=== PATIENT | male | born 1955 | race Caucasian/White ===

== ENCOUNTER 2020-07-12 06:45 | Inpatient (IN) | payer BC, MEDICARE, SELFPAY ==
[2020-07-12] VITALS (24 sets, daily range): BP systolic 82–116; BP diastolic 55–101; PULSE 87–131; RESP 14–25; TEMP 36–36.8; O2SAT 91–97; BMI 30.2
--- NOTE | ~2020-07-12 | XR_ITS ---
XR chest 1V portable 07/12/2020 07:30 Indication: Shortness of breath. COPD. Procedure: AP portable chest Comparison: No prior studies for comparison. Findings: Heart size normal. Extensive airspace disease of the right mid and lower lung, consistent w ith pneumonia. No pleural effusion or pneumothorax. Left lung clear. No acute osseous abnormality. Impression: 1: Extensive airspace disease of the right mid and lower lung, compatible with pneumonia. Reviewed, dictated and finalized at location A. Impression: 1: Extensive airspace disease of the right mid and lower lung, compatible with pneumonia.
--- NOTE | ~2020-07-12 | XR_ITS ---
XR chest 1V portable 07/13/2020 06:28 Indication: Pneumonia Procedure: AP portable chest Comparison: 07/12/2020 Findings: Heart size normal. There is bilateral airspace disease, right greater than left. Consolidat ion most confluent in the right upper lobe. No pleural effusion or pneumothorax. No significant inter jorge luis change. No acute osseous abnormality. Impression: 1: Stable asymmetric bilateral airspace disease, compatible with pneumonia. Reviewed, dictated and finalized at location A. Impression: 1: Stable asymmetric bilateral airspace disease, compatible with pneumonia.
--- NOTE | ~2020-07-12 | CT_ITS ---
EXAMINATION: CTA chest PE protocol DATE: 07/15/2020 13:38 INDICATION: Right-sided pleuritic chest pain. Hemoptysis. TECHNIQUE: Computed tomography angiography (CTA) of the chest was performed with 100 mL Omnipaque-350 intravenous contrast timed to evaluate the pulmonary arteries. Coronal maximum intensity projection 3D-reconstructions were created by the technologist. Automated exposure control and iterative reconst ruction technique were employed. The dose-length product was 464.17 mGy-cm. COMPARISON: Chest single view 07/13/2020 FINDINGS: There is severe emphysema. There is mild atelectasis in left upper lobe and left lower lobe . There are patchy airspace and groundglass opacities in right upper lobe, right lower lobe, and righ t middle lobe, consistent with pneumonia. Calcified right lung nodules and calcified right hilar lymp h nodes are consistent with old granulomatous disease. There is a small right pleural effusion. The h eart size is normal. There is a small pericardial effusion. There are coronary artery calcifications. There is no pulmonary embolus. IMPRESSION: 1. No pulmonary embolus. 2. Right-sided pneumonia. 3. Severe emphysema. 4. Small right pleural effusion. 5. Small pericardial effusion. Reviewed, dictated and finalized at location A.
--- NOTE | 2020-07-12 06:57 | ECG_ITS ---
Measurements Intervals [place] Rate: 131 P: 70 TN: 138 QRS: 63 QRSD: 102 T: 63 QT: 287 QTc: 425 Interpretive Statements SINUS TACHYCARDIA INCOMPLETE RIGHT BUNDLE BRANCH BLOCK BASELINE ARTIFACT- I, II, AVR, AVL ABNORMAL ECG Electronically Signed On 07-12-2020 7:45:27 CDT by Jens Boyce D.O.
[2020-07-12] MEDS: SODIUM CHLORIDE 0.9% IV 1,000 ML 1000 ML (07:17)
[2020-07-12 07:28] LABS: Basophils Absolute Auto 0.1 K/mm3 (0.0-0.1); Hematocrit 41.5 % (42.0-52.0); Hemoglobin 14.6 g/dL (14.0-18.0); Immature Granulocyte Absolute 0.09 K/mm3 (0.00-0.031); Immature Granulocyte Percent A 1.5 % (0-0.5); Lymphocytes Absolute Auto 0.31 K/mm3 (0.9-3.2); Lymphocytes Percent Auto 5.1 % (18.3-44.2); Mean Corpuscular HGB Conc 35.2 g/dl (32-36); Mean Corpuscular Hemoglobin 31.1 pg (26-34); Mean Corpuscular Volume 88.3 fl (80-100); Monocytes Absolute Auto 0.2 K/mm3 (0.1-0.6); Monocytes Percent Auto 3.8 % (2.6-8.5); Neutrophils Absolute Auto 5.4 K/mm3 (1.3-6.7); Neutrophils Percent Auto 88.6 % (45.5-73.1); Platelet Count Result 212 k/mm3 (150-375); Red Cell Distribution Width 12.5 % (11.5-14.5); White Blood Count 6.1 K/mm3 (4.5-10.0)
[2020-07-12 07:39] LABS: INR 1.4; Prothrombin Time 16.3 Seconds (11.1-14.7)
[2020-07-12 07:47] LABS: Partial Thromboplastin Time 33.2 SECONDS (22.3-36.8)
[2020-07-12 07:48] LABS: Lactic Acid Reflex 2.8 mmol/L (0.7-2.1)
--- NOTE | 2020-07-12 07:48 | ED.SOB ---
HPI - SOB/Dyspnea General Chief Complaint: Shortness of Breath/Dyspnea Stated Complaint: fever, sob Time Seen by Provider: 07/12/20 07:13 Source: patient and family Mode of arrival: ambulatory Limitations: no limitations History of Present Illness HPI Narrative: 65 years old white male presents with progressive shortness of breath and fever over the last 7 days. Patient denies exposure to anybody with known COVID-19. Patient denies any vomiting, diarrhea, abdominal pain, chest pain, back pain, headache, sore throat. History of COPD, Not on home oxygen. Related Data Home Medications Medication Instructions Recorded Confirmed amlodipine 5 mg PO DAILY 07/12/20 aspirin [Adult Low Dose Aspirin] 81 mg PO DAILY 07/12/20 levothyroxine 50 mcg PO DAILY 07/12/20 pantoprazole 40 mg PO QAM 07/12/20 rosuvastatin 10 mg PO DAILY 07/12/20 Allergies Allergy/AdvReac Type Severity Reaction Status Date / Time tetracycline Allergy Rash Verified 07/12/20 08:01 Review of Systems Review of Systems: Narrative: CONSTITUTIONAL: Denies fever, chills, or sweats. EYES: Denies visual changes, redness, or discharge. ENT: Denies rhinorrhea, congestion, sore throat, or otalgia. CARDIOVASCULAR: Denies chest pain, palpitations, or edema. RESPIRATORY: Denies cough or dyspnea. GASTROINTESTINAL: Denies abdominal pain, nausea, vomiting, or diarrhea. GENITOURINARY: Denies dysuria or hematuria. SKIN: Denies rash or itching. MUSCULOSKELETAL: Denies back pain, joint pain, or myalgia. NEUROLOGIC: Denies headache, numbness, or weakness. PSYCHIATRIC: Denies anxiety or depression. PMFSH Past Medical History Medical History (Updated 07/12/20 @ 09:59 by Sandra Foster MD) COPD (chronic obstructive pulmonary disease) Social History Social History (Updated 07/12/20 @ 07:51 by Sandra Foster MD) Second hand tobacco smoke exposure: No Exam Narrative: Exam Narrative: General appearance: Well-developed, well-nourished Skin: Normal color Head: Normocephalic, nontraumatic Eyes: Clear conjunctiva ENT: Oropharynx normal, ears normal, nose normal Neck: Supple, nontender Chest and respiratory: Airway patent, labored breathing, accessory muscle lateral use, diminished of air entry bilaterally mainly on the right side, scattered rhonchi and wheezing Heart: Tachycardia Abdomen: Soft, nontender, no organomegaly, quiet bowel sounds Vascular: Normal peripheral pulses, normal capillary refill. Musculoskeletal: Normal range of motion, nontender back Neurologic: Alert and oriented ?3, BATCHMAKER is normal as tested, no gross motor deficit Const: General: cooperative Course Course Emergency Course: Improving Reevaluation(s) Reevaluation #1: DR MARIN Requested to not send patient to the ICU until reevaluation after the IV bolus. Date: 07/12/20 Time: 09:57 Reevaluation #2: YASMINE Date: 07/12/20 Time: 10:00 Vital Signs Vital signs: Vital Signs Temperature 36.8 C 07/12/20 06:51 Pulse Rate 131 H 07/12/20 06:51 Respiratory Rate 22 H 07/12/20 06:51 Blood Pressure 97/70 L 07/12/20 06:51 Pulse Oximetry 91 07/12/20 06:51 Temperature 36.8 C 07/12/20 08:50 Pulse Rate 104 H 07/12/20 09:48 Respiratory Rate 18 07/12/20 09:48 Blood Pressure 96/68 L 07/12/20 09:48 Pulse Oximetry 97 07/12/20 09:48 Procedures Central Line Placement Right Femoral: Central Line Date: 07/12/20 Central Line Time: 09:46 Discussed w/ the patient/family/POA,the placement of a central venous catheter, including its clinical necessity/indication & associated potential risks, benifits and alternatives.: Yes Time Out Performed: Yes (25) Patient Placed on Mon
--- NOTE | 2020-07-12 08:00 | PC.NURSE ---
Pt unable to provide urine sample at this time
[2020-07-12] MEDS: IPRATROPIUM BR 0.02% INH SOLN 0.5 MG/2.5 ML VIAL INHALATION ×2 (08:19→21:07)
[2020-07-12] MEDS: ALBUTEROL SULFATE NEB 2.5 MG/0.5 ML INH 5 MG INHALATION (08:19)
[2020-07-12 08:22] LABS: Alanine Aminotransferase 28 U/L (4-50); Albumin Level 3.8 g/dL (3.5-5.1); Alkaline Phosphatase 54 U/L (38-126); Anion Gap 14 mmol/L (8-16); Aspartate Amino Transferase 33 U/L (17-59); Blood Urea Nitrogen 34 mg/dL (9-20); CRP > 45.0 mg/dL (<1.0); Calcium 8.5 mg/dL (8.4-10.2); Carbon Dioxide 22 mmol/L (22-30); Chloride 99 mmol/L (98-107); Estimated CRCL calculation 43 ml/min; Estimated Glomerular Filt Rate 43; Glucose 139 mg/dL (75-110); Potassium 3.8 mmol/L (3.4-5.0); Sodium 135 mmol/L (137-145)
[2020-07-12] MEDS: ACETAMINOPHEN 500 MG TABLET 1000 MG PO (08:50)
--- NOTE | 2020-07-12 08:54 | PC.NURSE ---
Pt unable to provide urine sample at this time
[2020-07-12] MEDS: SODIUM CHLORIDE 0.9% IV 1,000 ML 125 ML IV CONT ×2 (09:19→21:27)
--- NOTE | 2020-07-12 09:24 | PC.NURSE ---
Dr. Foster at bedside putting in central line
--- NOTE | 2020-07-12 10:19 | ADMGEN ---
This patient, London Nava, was admitted to Intensive Care Unit-7. Patient/family oriented to hospital policies and general routines including ID bracelet, bed and alarms, visiting hours, pain management, procedures, bathroom and other care routines, personal items, smoking policy, room service/diet, and visiting hours. Valuables list has been completed. Information on how to activate the Rapid Response Team has been discussed. Patient/Family are encouraged to report perceived risks to care and to ask questions if they do not understand what they are told or what they should do.
[2020-07-12 10:25] LABS: Reflex Lactic Acid Yes or No Add Lactic
[2020-07-12 11:04] LABS: Lactic Acid 3.4 mmol/L (0.7-2.1)
--- NOTE | 2020-07-12 12:03 | WPDCNINT ---
Assessment and Plan Assessment and plan (1) Sepsis: Code(s): A41.9 - Sepsis, unspecified organism Status: Acute Assessment and Plan: Sepsis secondary to community-acquired pneumonia versus COVID-19 patient received IV fluid bolus in the ED. Repeat lactate was elevated will recheck lactate at 2:00 p.m. continue IV fluids has not required vasopressors at this time but may needed blood Cultures sent and pending. (2) Pneumonia: Qualifiers: Laterality: right Lung location: unspecified part of lung Pneumonia type: due to unspecified organism Qualified Code(s): J18.9 - Pneumonia, unspecified organism Code(s): J18.9 - Pneumonia, unspecified organism Status: Acute Assessment and Plan: CXR showed Extensive airspace disease of the right mid and lower lung, compatible with pneumonia. blood culture sent and pending check sputum culture urine Legionella check influenza, COVID-19 empiric Rocephin azithromycin empiric dexamethasone for COPD and possible COVID-19 (3) Acute exacerbation of chronic obstructive airways disease: Code(s): J44.1 - Chronic obstructive pulmonary disease with (acute) exacerbation Status: Acute Assessment and Plan: empiric steroids bronchodilators (4) Suspected COVID-19 virus infection: Code(s): Z20.828 - Contact with and (suspected) exposure to other viral communicable diseases Status: Acute Assessment and Plan: COVID-19 suspected. SARS-CoV-2 PCR sent and results pending Patient is in Airborne, Droplet and Contact Isolation Check inflammatory markers (5) VALARIE (acute kidney injury): Code(s): N17.9 - Acute kidney failure, unspecified Status: Acute Assessment and Plan: creatinine elevated to 1.6 likely prerenal from sepsis and hypovolemia continue IV fluids monitor electrolytes and urine outpuyt (6) Hyperlipidemia: Code(s): E78.5 - Hyperlipidemia, unspecified Status: Acute Assessment and Plan: continue Crestor (7) Hypothyroidism: Code(s): E03.9 - Hypothyroidism, unspecified Status: Acute Assessment and Plan: continue levothyroxine (8) Hypertension: Code(s): I10 - Essential (primary) hypertension Status: Acute Assessment and Plan: blood pressure medications on hold due to hypotension Additional Plan DVT prophylaxis - heparin subcu Stress ulcer prophylaxis - patient on PPI Code Status - Full Code Total Critical Care Time - 35 minutes Due to a high probability of clinically significant, life threatening deterioration, the patient required my highest level of preparedness to intervene emergently and I personally spent this critical care time directly and personally managing the patient. This critical care time included obtaining a history; examining the patient; pulse oximetry; ordering and review of studies; arranging urgent treatment with development of a management plan; evaluation of patient's response to treatment; frequent reassessment; and discussions with other providers. It was exclusive of separately billable procedures and treating other patients and teaching time. Please see Assessment and Plan section and the rest of the note for further information on patient assessment and treatment Shoulder Joiner Consult Note Consult date: 07/12/20 Time Seen: 11:30 HPI: London Nava is a 65 year old male who presented with chief complaint of fever shortness of breath and cough for last 2 days. patient stated that his symptoms initially started 1 week ago when he had chills and body aches. Symptoms recovered and then since he started again having shortness of breath, productive cough, fever, chills, body aches. He told me that he was in contact with his daughter who had respiratory illness and was diagnosed with flu and negative for COVID. He denies any contact with anyone diagnosed with COVID-19 or travel. h
--- NOTE | 2020-07-12 13:48 | PM.IMHP ---
H&P: HPI History of Present Illness Date/Time: 07/12/20 13:48 Chief complaint: Pneumonia, sepsis, COPD Narrative: London Nava is a 65 year old male Has a history of COPD. And thinks that he had pneumonia 2-3 months ago. He was 9 sure if he was here in this hospital but I cannot find any records from it. The patient stated that he has had fever and chills and a cough for 7 days. he thought that he had the flu and was taking cold and flu medicine he felt like he was getting better in the in it got worse Over the last couple days and decided to come to the hospital. he had not been checked for influenza He stated that his daughter was sick about a week ago with the same symptoms. She recently was checked for COVID was found to be negative. The patient does not wear any oxygen at home. He stated he tried to not come to the hospital was short of breath and decided that he needed to come. His white count is normal. CRP is elevated greater than 45. Lactic acid 2.8 And 3.4. chest x-ray was read as extensive airspace disease of right mid and lower lung compatible with pneumonia. His creatinine was found to be 1.6. The patient was started on dexamethasone. He was given IV fluids, Zosyn, neb treatments, steroids, Levaquin, and vancomycin. the supervisor nurse was notified and the patient was admitted to the intensive care unit. A central line was placed in the right femoral area in the emergency room. Patient was checked for covid 19 And is in isolation now. chest x-ray was read as extensive airspace disease in the right mid and lower lung compatible with pneumonia. Date of service 07/22. Review of Systems Review of Systems: All systems reviewed & are unremarkable except as noted in HPI and below Constitutional: Constitutional: Reports as per HPI and Reports no additional constitutional complaints Eyes: Eyes: Reports as per HPI and Reports no additional eye complaints ENT: Reports system reviewed and no additional complaints, except as documented and Reports Normal hearing present Cardiovascular: Cardiovascular: Reports no additional cardiovascular complaints Respiratory: Respiratory: Reports no additional respiratory complaints and Reports no additional respiratory complaints Gastrointestinal: Gastrointestinal: Reports as per HPI and Reports no additional gastrointestinal complaints Musculoskeletal: Musculoskeletal: Reports no additional musculoskeletal complaints Integumentary/Breasts: Skin/Breast: Reports system reviewed and no additional complaints, except as docu and Reports as per HPI Neurologic: Reports system reviewed and no additional complaints, except as documented, Reports as per HPI and Reports Normal hearing present Psychiatric: Psychiatric: Reports no additional psychiatric complaints and Reports as per HPI Endocrine: Endocrine: Reports no additional endocrine complaints Hematologic/Lymphatic: Hematologic/Lymphatic: Reports no additional hematologic/lymphatic complaints Allergic/Immunologic: Allergic/Immunologic: Reports no additional allergic/immunologic complaints [facility] Past Medical History Medical History (Updated 07/12/20 @ 14:02 by Patt Vance NP) COPD (chronic obstructive pulmonary disease) History of throat cancer Hyperlipidemia Port-A-Cath in place Surgical History Surgical History (Updated 07/12/20 @ 14:02 by Patt Vance NP) History of arthroscopy of both knees S/p bilateral shoulder joint replacement Family History Family History (Updated 07/12/20 @ 14:03 by Patt Vance NP) Father Cancer COPD (chronic obstructive pulmonary disease) Mother Cancer Sibling Mental disorder Social History Social History (Updated 07/12/20 @ 14:06 by Patt Vance NP) Social History: the patient stated that he quit smoking in 2009 just 1 year prior to being diagnosed with throat cancer. The patient occasionally has an alcoholic beverage. The patient is retired from the [employer]
[2020-07-12 14:20] LABS: Lactic Acid Reflex 3.7 mmol/L (0.7-2.1)
[2020-07-12 14:29] LABS: NT Pro B Type Natriuretic Pept 3040 PG/ML (5-100)
[2020-07-12 14:34] LABS: D Dimer 2.07 ug/mL (<0.48)
[2020-07-12] MEDS: ALBUTEROL SULFATE NEB 2.5 MG/0.5 ML INH INHALATION ×2 (15:26→21:06)
[2020-07-12 15:29] LABS: Influenza Control Positive
[2020-07-12 18:32] LABS: Add Urine Microscopic? YES; Appearance Urine Cloudy (Clear); Bilirubin Urine Negative (Negative); Blood Urine Negative (Negative); Color Urine Amber (Yellow); Glucose Urine UA Negative (Negative); Ketones Urine Negative (Negative); Leukocyte Esterase Ur Negative LEU/UL (Negative); Mucus Urine Rare /lpf; Nitrate Urine Negative (Negative); Protein Urine 2+ mg/dL (Negative); RBC Urine 0-2 /hpf (0-2); Specific Grav Ur 1.028 (1.001-1.035); Squamous Epithelial Cell Urine Rare /hpf (Few); Urobilinogen Urine Negative mg/dL (<2.0)
[2020-07-12 19:00] LABS: SARS-CoV-2 RNA PCR Positive
[2020-07-12] MEDS: HEPARIN SODIUM 5,000 UNITS/ML VIAL 5000 UNITS SUB-Q (20:28)
[2020-07-13] VITALS (19 sets, daily range): BP systolic 102–126; BP diastolic 67–96; PULSE 86–96; RESP 16–24; TEMP 36.2–36.6; O2SAT 90–97
[2020-07-13] MEDS: ALBUTEROL SULFATE NEB 2.5 MG/0.5 ML INH INHALATION ×2 (02:27→08:34)
[2020-07-13] MEDS: IPRATROPIUM BR 0.02% INH SOLN 0.5 MG/2.5 ML VIAL INHALATION ×2 (02:28→08:37)
[2020-07-13] MEDS: SODIUM CHLORIDE 0.9% IV 1,000 ML 125 ML IV CONT (05:39)
[2020-07-13 06:03] LABS: Hematocrit 34.3 % (42.0-52.0); Hemoglobin 11.7 g/dL (14.0-18.0); Mean Corpuscular HGB Conc 34.1 g/dl (32-36); Mean Corpuscular Hemoglobin 31.5 pg (26-34); Mean Corpuscular Volume 92.5 fl (80-100); Mean Platelet Volume 10.2 fl (7.4-10.4); Platelet Count Result 150 k/mm3 (150-375); Red Blood Count 3.71 M/mm3 (4.6-6.20); Red Cell Distribution Width 13.2 % (11.5-14.5); White Blood Count 10.9 K/mm3 (4.5-10.0)
[2020-07-13 06:15] LABS: Alanine Aminotransferase 22 U/L (4-50); Albumin Level 2.8 g/dL (3.5-5.1); Alkaline Phosphatase 43 U/L (38-126); Anion Gap 9 mmol/L (8-16); Aspartate Amino Transferase 27 U/L (17-59); Bilirubin,Total 0.5 mg/dL (0.2-1.3); Blood Urea Nitrogen 38 mg/dL (9-20); Carbon Dioxide 24 mmol/L (22-30); Chloride 103 mmol/L (98-107); Estimated CRCL calculation 57 ml/min; Estimated Glomerular Filt Rate > 60; Glucose 140 mg/dL (75-110); Magnesium 1.7 mg/dL (1.6-2.3); Potassium 3.9 mmol/L (3.4-5.0); Sodium 136 mmol/L (137-145)
[2020-07-13] MEDS: LEVOTHYROXINE SODIUM 50 MCG TABLET PO (06:44)
--- NOTE | 2020-07-13 08:44 | WPDINTPN ---
Progress Note: A&P Assessment and Plan (1) COVID-19: Code(s): U07.1 - COVID-19 Status: Acute Assessment and Plan: COVID-19 pneumonia SARS-CoV-2 PCR positive Patient is in Airborne, Droplet and Contact Isolation patient currently on 3 L nasal cannula Dexamethasone 6 mg IV q.day started empirically on 07/12 which will be continued. patient will be started on Remdesivir 07/13 will discontinue IV fluids and give Lasix 20 mg IV x1 Continue antiobiotics for empiric bacterial coverage monitor inflammatory markers (2) Pneumonia: Qualifiers: Laterality: right Lung location: unspecified part of lung Pneumonia type: due to unspecified organism Qualified Code(s): J18.9 - Pneumonia, unspecified organism Code(s): J18.9 - Pneumonia, unspecified organism Status: Acute Assessment and Plan: CXR showed Extensive airspace disease of the right mid and lower lung, compatible with pneumonia. blood culture sent and 1 set is growing Gram-negative bacilli. check sputum culture urine Legionella Influenza Negative continue empiric Rocephin azithromycin (3) Acute exacerbation of chronic obstructive airways disease: Code(s): J44.1 - Chronic obstructive pulmonary disease with (acute) exacerbation Status: Acute Assessment and Plan: empiric steroids bronchodilators (4) Sepsis: Code(s): A41.9 - Sepsis, unspecified organism Status: Acute Assessment and Plan: Sepsis secondary to community-acquired pneumonia versus COVID-19 patient received IV fluid bolus in the ED. and on maintenance IV fluids hemodynamically stable discontinue IV fluids at this time (5) VALARIE (acute kidney injury): Code(s): N17.9 - Acute kidney failure, unspecified Status: Acute Assessment and Plan: creatinine elevated to 1.6 likely prerenal from sepsis and hypovolemia improved with IV fluids monitor electrolytes and urine outpuyt (6) Hyperlipidemia: Code(s): E78.5 - Hyperlipidemia, unspecified Status: Chronic Assessment and Plan: continue Crestor (7) Hypothyroidism: Code(s): E03.9 - Hypothyroidism, unspecified Status: Chronic Assessment and Plan: continue levothyroxine (8) Hypertension: Code(s): I10 - Essential (primary) hypertension Status: Chronic Assessment and Plan: blood pressure medications on hold due to hypotension (9) Bacteremia: Code(s): R78.81 - Bacteremia Status: Acute Assessment and Plan: 1/2 blood culture growing gram-negative bacilli on prelim. Continue Rocephin. Await identification and susceptibilities Additional Plan DVT prophylaxis - heparin subcu Stress ulcer prophylaxis - patient on PPI Code Status - Full Code I have requested patient to contact his to ask her to get tested for COVID-19 and isolate herself until her test results are back. Will transfer patient out of ICU today Subjective Date/time seen: 07/13/20 Overnight events reviewed. Afebrile Feels better as compared to yesterday. No shortness of breath. he does have cough but no phlegm not on any vasopressors Vitals acceptable Patient denies fever, chest pain, shortness of breath, nausea, vomiting, abdominal pain, diarrhea, headache or constipation. Review of Systems Review of Systems: All systems reviewed & are unremarkable except as noted in HPI and below ( HPI) Exam Narrative: Exam Narrative: General: Pt is alert awake and in NAD Lungs/Chest: Trachea central Few occasional wheezing, crackles on both sides right more than left, coarse breath sounds Cardiac: RRR. Normal S1 S2. No murmurs Circulation: Pedal pulses are intact and symmetrical. Abdomen: Normal bowel sounds.. Soft. NT. ND. Extremities: No clubbing, cyanosis or edema. Warm : Rodas in place Neurologic: Follows commands. Moves all 4 extremities PERRL, AO x3 Skin: No Rash, diapho
[2020-07-13] MEDS: HEPARIN SODIUM 5,000 UNITS/ML VIAL 5000 UNITS SUB-Q (09:44)
[2020-07-13] MEDS: FUROSEMIDE INJ 40 MG/4 ML VIAL IV PUSH (09:44)
[2020-07-13] MEDS: DEXAMETHASONE SOD PHOS INJ 4 MG/ML VIAL 6 MG IV PUSH (09:44)
[2020-07-13] MEDS: ASPIRIN 325 MG TABLET PO (09:45)
[2020-07-13] MEDS: REMDESIVIR 200 MG/NS 250 ML 200 MG/250 ML BAG 250 MG IVPB (10:12)
[2020-07-13] MEDS: ROSUVASTATIN 10 MG TABLET PO (13:57)
[2020-07-13] MEDS: PANTOPRAZOLE 40 MG TABLET PO (13:57)
[2020-07-13] MEDS: ALBUTEROL SULFATE (*SP) INHALER 1 PUFF (14:32)
[2020-07-13] MEDS: ALBUTEROL SULFATE (*SP) AEROSOL 1 PUFF 2 PUFF INHALATION ×2 (14:34→20:29)
--- NOTE | 2020-07-13 15:04 | PM.IMPN ---
Progress Note: A&P Assessment and Plan (1) Septic shock: Code(s): A41.9 - Sepsis, unspecified organism; R65.21 - Severe sepsis with septic shock Status: Acute Assessment and Plan: . He is being treated for pneumonia and COVID pneumonia.. the patient was given 2 L of normal seen in emergency room. He was started on Zosyn and Levaquin in the emergency room which have been discontinued at this time . He was also on vancomycin. The patient is now on a Zithromax and Rocephin. Last lactic acid was still above 3 and not repeated, will order repeat now (2) Pneumonia: Qualifiers: Laterality: right Lung location: unspecified part of lung Pneumonia type: due to unspecified organism Qualified Code(s): J18.9 - Pneumonia, unspecified organism Code(s): J18.9 - Pneumonia, unspecified organism Status: Acute Assessment and Plan: initial sputum not satisfactory specimen and 1 of 2 blood cultures growing gram-negative dena. Patient is on azithromycin and Rocephin. chest x-ray today reveals more confluent right upper lobe infiltrate so will continue the antibiotics with treatment for the COVID (3) Acute exacerbation of chronic obstructive airways disease: Code(s): J44.1 - Chronic obstructive pulmonary disease with (acute) exacerbation Status: Acute Assessment and Plan: Patient was started on steroids and antibiotics. The patient is on trelegy inhaler at home with albuterol and is non formulary but will substitute Spiriva and Symbicort as meter dose inhalers with the COVID (4) Suspected COVID-19 virus infection: Code(s): Z20.828 - Contact with and (suspected) exposure to other viral communicable diseases Status: Acute Assessment and Plan: Patient's CRP , ferritin, D-dimer, and LDH all elevated. COVID swab is positive, so with the hypoxia will start Decadron 6 mg daily and Remdesivir . (5) Hypothyroidism: Code(s): E03.9 - Hypothyroidism, unspecified Status: Chronic Assessment and Plan: Check his levels and continue levothyroxine. (6) Hypertension: Code(s): I10 - Essential (primary) hypertension Status: Chronic Assessment and Plan: Patient's blood pressure was on the low side due to sepsis and still adequate today so will continue to hold amlodipine (7) VALARIE (acute kidney injury): Code(s): N17.9 - Acute kidney failure, unspecified Status: Acute Assessment and Plan: Creatinine was 1.6. due to the sepsis for dehydration. Patient did received 2 normal saline boluses in the emergency room. and the early a.m. creatinine was 1.2. However if this with the COVID we currently holding any further fluids and received dose of Lasix per label operator. recheck lactic acid and renal status with Lexapro light now (8) Hyperlipidemia: Code(s): E78.5 - Hyperlipidemia, unspecified Status: Chronic Assessment and Plan: Patient is on Crestor at home and will continue with normal LFTs. (9) DVT prophylaxis: Code(s): Z29.9 - Encounter for prophylactic measures, unspecified Status: Acute Assessment and Plan: b.i.d. Lovenox with the COVID Subjective Date/time seen: 07/13/20 15:04 Interval history: Date of visit 07/13. 65-year-old hypertensive white male COPD admitted with 1 week history of increasing cough and shortness of breath malaise. Chest x-ray revealed diffuse infiltrates and COVID test returned positive. Initial blood pressure toward the low side but improved with fluid challenge. Feels slightly better this a.m. but still coughing and still shortness of breath with exertion Exam Narrative: Exam Narrative: blood pressure 116/76 pulse is 96 sat 90% on 3 L nasal cannula afebrile lungs bilateral crackles posteriorly right greater than left CV tachy no murmurs heard abdomen soft nontender extremities without edema distal pulse intact neuro alert pl
--- NOTE | 2020-07-13 16:00 | PC.NURSE ---
This patient, London Nava, was received from ICU on 07/13/20 at 1600. Patient/family oriented to unit policies and routines
[2020-07-13 17:56] LABS: Lactic Acid Reflex 2.5 mmol/L (0.7-2.1)
[2020-07-13 18:01] LABS: Albumin Level 3.1 g/dL (3.5-5.1); Anion Gap 11 mmol/L (8-16); Blood Urea Nitrogen 37 mg/dL (9-20); Calcium 7.3 mg/dL (8.4-10.2); Carbon Dioxide 21 mmol/L (22-30); Chloride 103 mmol/L (98-107); Estimated CRCL calculation 68 ml/min; Estimated Glomerular Filt Rate > 60; Glucose 118 mg/dL (75-110); Phosphorus 2.2 mg/dL (2.5-4.5); Potassium 4.1 mmol/L (3.4-5.0); Sodium 135 mmol/L (137-145)
[2020-07-13] MEDS: ACETAMINOPHEN 325 MG TABLET 650 MG PO (20:24)
[2020-07-13] MEDS: ENOXAPARIN 40 MG/0.4 ML SYRINGE SUB-Q (20:25)
[2020-07-13 20:41] LABS: Reflex Lactic Acid Yes or No Add Lactic
[2020-07-13 21:29] LABS: Lactic Acid 1.9 mmol/L (0.7-2.1)
[2020-07-14] VITALS (8 sets, daily range): BP systolic 105–138; BP diastolic 69–86; PULSE 77–90; RESP 16–18; TEMP 36.4–37.2; O2SAT 92–99
[2020-07-14 06:30] LABS: Hematocrit 35.8 % (42.0-52.0); Hemoglobin 12.2 g/dL (14.0-18.0); Mean Corpuscular HGB Conc 34.1 g/dl (32-36); Mean Corpuscular Hemoglobin 31.2 pg (26-34); Mean Corpuscular Volume 91.6 fl (80-100); Platelet Count Result 165 k/mm3 (150-375); Red Blood Count 3.91 M/mm3 (4.6-6.20); Red Cell Distribution Width 13.4 % (11.5-14.5); White Blood Count 14.2 K/mm3 (4.5-10.0)
[2020-07-14] MEDS: LEVOTHYROXINE SODIUM 50 MCG TABLET PO (06:38)
[2020-07-14 06:45] LABS: Lactic Acid Reflex 1.1 mmol/L (0.7-2.1)
[2020-07-14 06:54] LABS: D Dimer 3.31 ug/mL (<0.48)
[2020-07-14 07:29] LABS: Alanine Aminotransferase 30 U/L (4-50); Albumin Level 2.9 g/dL (3.5-5.1); Alkaline Phosphatase 55 U/L (38-126); Anion Gap 9 mmol/L (8-16); Aspartate Amino Transferase 35 U/L (17-59); Bilirubin,Total 0.6 mg/dL (0.2-1.3); Blood Urea Nitrogen 37 mg/dL (9-20); Calcium 7.6 mg/dL (8.4-10.2); Carbon Dioxide 22 mmol/L (22-30); Chloride 104 mmol/L (98-107); Estimated CRCL calculation 78 ml/min; Estimated Glomerular Filt Rate > 60; Glucose 119 mg/dL (75-110); Lactate Dehydrogenase 497 U/L (313-618); Magnesium 2.3 mg/dL (1.6-2.3); Potassium 3.8 mmol/L (3.4-5.0); Sodium 135 mmol/L (137-145)
[2020-07-14 08:03] LABS: CRP 34.2 mg/dL (<1.0)
[2020-07-14] MEDS: ALBUTEROL SULFATE (*SP) AEROSOL 1 PUFF 2 PUFF INHALATION ×4 (08:48→23:03)
[2020-07-14] MEDS: ASPIRIN 81 MG CHEWABLE TABLET PO (10:08)
[2020-07-14] MEDS: DEXAMETHASONE SOD PHOS INJ 4 MG/ML VIAL 6 MG IV PUSH (10:09)
[2020-07-14] MEDS: ROSUVASTATIN 10 MG TABLET PO (10:10)
[2020-07-14] MEDS: ENOXAPARIN 40 MG/0.4 ML SYRINGE SUB-Q ×2 (10:10→20:31)
[2020-07-14] MEDS: PANTOPRAZOLE 40 MG TABLET PO (10:10)
[2020-07-14] MEDS: REMDESIVIR 100 MG/NS 250 ML 100 MG/250 ML BAG 250 MG IVPB (10:11)
--- NOTE | 2020-07-14 16:16 | PM.IMPN ---
Progress Note: A&P Assessment and Plan (1) Septic shock: Code(s): A41.9 - Sepsis, unspecified organism; R65.21 - Severe sepsis with septic shock Status: Acute Assessment and Plan: . He is being treated for bacterila pneumonia and COVID pneumonia.. the patient was given 2 L of normal seen in emergency room. got a dose of Levaquin, Zosyn, and vancomycin new ER The patient is now on a Zithromax and Rocephin day 2. Lactic acid is now normal (2) Pneumonia: Qualifiers: Laterality: right Lung location: unspecified part of lung Pneumonia type: due to unspecified organism Qualified Code(s): J18.9 - Pneumonia, unspecified organism Code(s): J18.9 - Pneumonia, unspecified organism Status: Acute Assessment and Plan: initial sputum not satisfactory specimen and 1 of 2 blood cultures growing pasteurella multocida Patient is on azithromycin and Rocephin which would cover. He has no exposure to cats. chest x-ray reveals more confluent right upper lobe infiltrate so will continue the antibiotics with treatment for the COVID. repeat chest xray am with d dimer and hemotysis will proceed with CTA (3) Acute exacerbation of chronic obstructive airways disease: Code(s): J44.1 - Chronic obstructive pulmonary disease with (acute) exacerbation Status: Acute Assessment and Plan: Patient was started on steroids and antibiotics. The patient is on trelegy inhaler at home with albuterol and is non formulary but will substitute Spiriva and Symbicort MDI with the COVID (4) Suspected COVID-19 virus infection: Code(s): Z20.828 - Contact with and (suspected) exposure to other viral communicable diseases Status: Acute Assessment and Plan: Patient's CRP , ferritin, D-dimer, and LDH all elevated. COVID swab is positive, so with the hypoxia started Decadron 6 mg daily and Remdesivir .D #2 (5) Hypothyroidism: Code(s): E03.9 - Hypothyroidism, unspecified Status: Chronic Assessment and Plan: TSH normal levothyroxine. (6) Hypertension: Code(s): I10 - Essential (primary) hypertension Status: Chronic Assessment and Plan: Patient's blood pressure was on the low side due to sepsis and still adequate today so will continue to hold amlodipine again (7) VALARIE (acute kidney injury): Code(s): N17.9 - Acute kidney failure, unspecified Status: Acute Assessment and Plan: Creatinine was 1.6. due to the sepsis for dehydration. Patient did received 2 normal saline boluses in the emergency room. and the early a.m 07/13 . creatinine was 1.2. However with the COVID we held any further fluids and received dose of Lasix per special delivery mail carrier 07/13. repeat creatinine today 0.9 (8) Hyperlipidemia: Code(s): E78.5 - Hyperlipidemia, unspecified Status: Chronic Assessment and Plan: Patient is on Crestor at home and will continue with normal LFTs. (9) DVT prophylaxis: Code(s): Z29.9 - Encounter for prophylactic measures, unspecified Status: Acute Assessment and Plan: b.i.d. Lovenox with the COVID Subjective Date/time seen: 07/14/20 16:16 Interval history: Date of visit 07/14. 65-year-old hypertensive white male COPD admitted with 1 week history of increasing cough and shortness of breath malaise. Chest x-ray revealed diffuse infiltrates and COVID test returned positive. Initial blood pressure toward the low side but improved with fluid challenge. Feels better today but still R sided CP and had some blood in sputum earlier Exam Narrative: Exam Narrative: blood pressure 132/84 pulse is 76 sat 95% on 2 L nasal cannula afebrile lungs bilateral crackles posteriorly right greater than left CV rrr no murmurs heard abdomen soft nontender extremities without edema distal pulse intact neuro alert pleasant cooperative no focal deficits Objective Data Vital Signs Vital Si
[2020-07-15] VITALS: BP 129/81; PULSE 73; RESP 18; TEMP 36.7; O2SAT 95
[2020-07-15] MEDS: LEVOTHYROXINE SODIUM 50 MCG TABLET PO (05:23)
[2020-07-15 08:00] VITALS: BP 144/79; PULSE 72; RESP 18; TEMP 36.6; O2SAT 91
[2020-07-15] MEDS: ALBUTEROL SULFATE (*SP) AEROSOL 1 PUFF 2 PUFF INHALATION ×4 (08:02→20:32)
[2020-07-15] MEDS: ASPIRIN 81 MG CHEWABLE TABLET PO (09:00)
[2020-07-15] MEDS: REMDESIVIR 100 MG/NS 250 ML 100 MG/250 ML BAG 150 MG IVPB (09:00)
[2020-07-15] MEDS: ROSUVASTATIN 10 MG TABLET PO (09:00)
[2020-07-15] MEDS: DEXAMETHASONE SOD PHOS INJ 4 MG/ML VIAL 6 MG IV PUSH (09:00)
[2020-07-15] MEDS: ENOXAPARIN 40 MG/0.4 ML SYRINGE SUB-Q ×2 (09:00→20:17)
[2020-07-15 10:05] LABS: Hematocrit 37.4 % (42.0-52.0); Hemoglobin 12.9 g/dL (14.0-18.0); Mean Corpuscular HGB Conc 34.5 g/dl (32-36); Mean Corpuscular Hemoglobin 30.8 pg (26-34); Mean Corpuscular Volume 89.3 fl (80-100); Mean Platelet Volume 11.1 fl (7.4-10.4); Platelet Count Result 211 k/mm3 (150-375); Red Blood Count 4.19 M/mm3 (4.6-6.20); Red Cell Distribution Width 13.2 % (11.5-14.5); White Blood Count 12.3 K/mm3 (4.5-10.0)
--- NOTE | 2020-07-15 10:51 | PM.IMPN ---
Progress Note: A&P Assessment and Plan (1) Septic shock: Code(s): A41.9 - Sepsis, unspecified organism; R65.21 - Severe sepsis with septic shock Status: Acute Assessment and Plan: He is being treated for bacterial pneumonia and COVID pneumonia. The patient was given 2 L NS in emergency room. And he got a dose of Levaquin, Zosyn, and vancomycin in the ER. BP much more stable. The patient is now on a Zithromax and Rocephin. Lactic acid is normal now. WBC up and down but on steroids now. (2) Pneumonia: Qualifiers: Laterality: right Lung location: unspecified part of lung Pneumonia type: due to unspecified organism Qualified Code(s): J18.9 - Pneumonia, unspecified organism Code(s): J18.9 - Pneumonia, unspecified organism Status: Acute Assessment and Plan: Blood cultures growing pasteurella multocida, source unclear. He has no exposure to cats. Patient is on azithromycin and Rocephin which would cover this. CXR 07/13 reveals more confluent right upper lobe infiltrate so will continue the antibiotics as well with treatment for the COVID. CTA ordered and pending. CTA pulmonary showing no PE but does show right sided PNA and severe emphysema (3) Acute exacerbation of chronic obstructive airways disease: Code(s): J44.1 - Chronic obstructive pulmonary disease with (acute) exacerbation Status: Acute Assessment and Plan: Patient was started on steroids and antibiotics. The patient is on Trelegy inhaler at home that is non formulary but has been substituted with Spiriva and Symbicort MDI with the COVID. (4) COVID-19: Code(s): U07.1 - COVID-19 Status: Acute Assessment and Plan: Patient's CRP, ferritin, D-dimer, and LDH all elevated. COVID swab was positive. He became hypoxia and started Decadron 6 mg daily and Remdesivir (Day #3). Already weaned to room air. Continue supportive care. (5) Hypothyroidism: Code(s): E03.9 - Hypothyroidism, unspecified Status: Chronic Assessment and Plan: TSH normal. Continue levothyroxine. (6) Hypertension: Code(s): I10 - Essential (primary) hypertension Status: Chronic Assessment and Plan: Patient's blood pressure was reviewed on 07/15 Patient's blood pressure was on the low side due to sepsis but blood pressure well controlled now. Will resume his amlodipine today. (7) VALARIE (acute kidney injury): Code(s): N17.9 - Acute kidney failure, unspecified Status: Acute Assessment and Plan: Creatinine was 1.6 on admission due to the sepsis and dehydration. Patient did received 2 normal saline boluses in the emergency room. Due to COVID, we held any further fluids and received dose of Lasix per bag shaker 07/13. Creatinine 0.9 yesterday. (8) Hyperlipidemia: Code(s): E78.5 - Hyperlipidemia, unspecified Status: Chronic Assessment and Plan: LFTs okay. Continue Crestor (9) DVT prophylaxis: Code(s): Z29.9 - Encounter for prophylactic measures, unspecified Status: Acute Assessment and Plan: Lovenox BID with COVID Subjective Date/time seen: 07/15/20 10:51 Interval history: Date of visit 07/15 65yo male with HTN and COPD admitted with 1 week history of increasing cough, malaise and shortness of breath. Chest x-ray revealed diffuse infiltrates and COVID test returned positive. Initial blood pressure toward the low side but improved with fluid challenge. Assuming care. Chart reviewed Patient no longer having hemoptysis. Still having the cough productive of yellow sputum. No shortness of breath at rest but does have dyspnea on exertion. This is not uncommon for him given his COPD. He denies any chest pain. Eating well. Feels much better than on admission. He was taken off O2 this morning. Exam Narrative: Exam Narrative: AF 144/79 72 18 91% ra Gen - NARD lying semirecumb
[2020-07-15 11:01] LABS: Alanine Aminotransferase 50 U/L (4-50); Albumin Level 3.2 g/dL (3.5-5.1); Alkaline Phosphatase 59 U/L (38-126); Anion Gap 7 mmol/L (8-16); Aspartate Amino Transferase 50 U/L (17-59); Blood Urea Nitrogen 34 mg/dL (9-20); Calcium 8.2 mg/dL (8.4-10.2); Carbon Dioxide 28 mmol/L (22-30); Chloride 102 mmol/L (98-107); Estimated CRCL calculation 81 ml/min; Estimated Glomerular Filt Rate > 60; Glucose 102 mg/dL (75-110); Magnesium 2.6 mg/dL (1.6-2.3); Potassium 4.4 mmol/L (3.4-5.0); Sodium 137 mmol/L (137-145)
[2020-07-15 12:00] VITALS: BP 133/75; PULSE 72; RESP 18; TEMP 36.4; O2SAT 93
[2020-07-15 12:10] LABS: Vancomycin Trough < 5.0 ug/mL (10.0-20.0)
[2020-07-15 16:00] VITALS: BP 139/75; PULSE 73; RESP 18; TEMP 36.4; O2SAT 92
[2020-07-15] MEDS: PANTOPRAZOLE 40 MG TABLET PO (16:00)
[2020-07-15 20:00] VITALS: BP 152/92; PULSE 73; RESP 18; TEMP 36.6; O2SAT 93
[2020-07-15 20:32] VITALS: PULSE 72; RESP 18; O2SAT 90
[2020-07-16] VITALS: BP 131/79; PULSE 66; RESP 18; TEMP 37.1; O2SAT 92
[2020-07-16 04:00] VITALS: BP 143/85; PULSE 64; RESP 18; TEMP 37.2; O2SAT 90
[2020-07-16] MEDS: LEVOTHYROXINE SODIUM 50 MCG TABLET PO (05:35)
[2020-07-16 06:28] LABS: Hematocrit 36.1 % (42.0-52.0); Hemoglobin 12.5 g/dL (14.0-18.0); Mean Corpuscular HGB Conc 34.6 g/dl (32-36); Mean Corpuscular Hemoglobin 30.9 pg (26-34); Mean Corpuscular Volume 89.1 fl (80-100); Mean Platelet Volume 11.6 fl (7.4-10.4); Platelet Count Result 215 k/mm3 (150-375); Red Blood Count 4.05 M/mm3 (4.6-6.20); Red Cell Distribution Width 13.2 % (11.5-14.5); White Blood Count 11.7 K/mm3 (4.5-10.0)
[2020-07-16 06:49] LABS: D Dimer 3.59 ug/mL (<0.48)
[2020-07-16 07:00] LABS: Alanine Aminotransferase 52 U/L (4-50); Alkaline Phosphatase 50 U/L (38-126); Anion Gap 6 mmol/L (8-16); Aspartate Amino Transferase 45 U/L (17-59); Bilirubin,Total 0.9 mg/dL (0.2-1.3); Blood Urea Nitrogen 32 mg/dL (9-20); Calcium 8.1 mg/dL (8.4-10.2); Carbon Dioxide 29 mmol/L (22-30); Chloride 103 mmol/L (98-107); Estimated CRCL calculation 81 ml/min; Estimated Glomerular Filt Rate > 60; Glucose 107 mg/dL (75-110); Lactate Dehydrogenase 757 U/L (313-618); Magnesium 2.3 mg/dL (1.6-2.3); Potassium 4.4 mmol/L (3.4-5.0); Sodium 138 mmol/L (137-145)
[2020-07-16 08:00] VITALS: BP 167/87; PULSE 76; RESP 16; TEMP 36.6; O2SAT 90; O2SAT 95
[2020-07-16] MEDS: ASPIRIN 81 MG CHEWABLE TABLET PO (08:37)
[2020-07-16] MEDS: ROSUVASTATIN 10 MG TABLET PO (08:37)
[2020-07-16] MEDS: DEXAMETHASONE SOD PHOS INJ 4 MG/ML VIAL 6 MG IV PUSH (08:37)
[2020-07-16] MEDS: PANTOPRAZOLE 40 MG TABLET PO (08:37)
[2020-07-16] MEDS: ENOXAPARIN 40 MG/0.4 ML SYRINGE SUB-Q (08:37)
[2020-07-16] MEDS: amLODIPine BESYLATE 5 MG TABLET PO (08:37)
[2020-07-16 08:45] VITALS: O2SAT 94
[2020-07-16] MEDS: ALBUTEROL SULFATE (*SP) AEROSOL 1 PUFF 2 PUFF INHALATION (08:49)
[2020-07-16 12:00] VITALS: BP 139/77; PULSE 81; RESP 16; TEMP 36.4; O2SAT 92
[2020-07-16] MEDS: REMDESIVIR 100 MG/NS 250 ML 100 MG/250 ML BAG 250 MG IVPB (12:00)
--- NOTE | 2020-07-16 12:40 | PM.DS ---
DS: Admitting Diagnosis Admitting Diagnosis Admitting Diagnosis: Pneumonia, sepsis, COPD DS: Discharge Diagnosis Discharge Diagnosis (1) Septic shock: Code(s): A41.9 - Sepsis, unspecified organism; R65.21 - Severe sepsis with septic shock Status: Acute Assessment and Plan: Patient presented with SOB and cough. Sepsis diagnosed in the ED felt secondary to community-acquired pneumonia and/or COVID-19. The patient was given 2 L NS in emergency room. CXR showing extensive airspace disease of the right mid and lower lung, compatible with pneumonia He got a dose of Levaquin, Zosyn, and vancomycin in the ED. BP much more stable. The patient admitted to the ICU and seen by the optometrist president/practice owner. Abx narrowed to Zithromax and Rocephin. Lactic acid to 3.7 but normal now. WBC trended down. No fevers during his hospital course. (2) Pneumonia: Qualifiers: Laterality: right Lung location: unspecified part of lung Pneumonia type: due to unspecified organism Qualified Code(s): J18.9 - Pneumonia, unspecified organism Code(s): J18.9 - Pneumonia, unspecified organism Status: Acute Assessment and Plan: Blood cultures growing pasteurella multocida, source unclear. He has no exposure to cats. Not a typical contaminate. Patient is on azithromycin and Rocephin which would cover this (Day 5 of abx). CXR /11 reveals more confluent right upper lobe infiltrate. Ddimer was elevated felt related to COVID. CTA pulmonary showing no PE but does show right sided PNA and severe emphysema. Able to be weaned to room air. (3) Acute exacerbation of chronic obstructive airways disease: Code(s): J44.1 - Chronic obstructive pulmonary disease with (acute) exacerbation Status: Acute Assessment and Plan: Patient was started on steroids and antibiotics. The patient is on Trelegy inhaler at home that is non formulary but has been substituted with Spiriva and Symbicort MDI with the COVID. (4) COVID-19: Code(s): U07.1 - COVID-19 Status: Acute Assessment and Plan: Patient's CRP, ferritin, D-dimer, and LDH all elevated. COVID swab was positive. He became hypoxia and started Decadron 6 mg daily and Remdesivir (Day #4). Already weaned to room air. [place] patient could be discharged home today without the last Remdesivir dose since doing well on room air. Contiue Dexa to complete a ten day course. (5) Hypothyroidism: Code(s): E03.9 - Hypothyroidism, unspecified Status: Chronic Assessment and Plan: TSH normal. We continued levothyroxine. (6) Hypertension: Code(s): I10 - Essential (primary) hypertension Status: Chronic Assessment and Plan: Patient's blood pressure was monitored. Patient's blood pressure was on the low side due to sepsis but blood pressure well controlled now. We wee able to resume his amlodipine (7) VALARIE (acute kidney injury): Code(s): N17.9 - Acute kidney failure, unspecified Status: Acute Assessment and Plan: Creatinine was 1.6 on admission due to the sepsis and dehydration. Patient did received 2 normal saline boluses in the emergency room. Due to COVID, we held any further fluids and received dose of Lasix per optometrist president/practice owner 07/13. Creatinine normalized. (8) Hyperlipidemia: Code(s): E78.5 - Hyperlipidemia, unspecified Status: Chronic Assessment and Plan: LFTs okay. We continued Crestor DS: Summary Hospital Course Reason for hospitalization: 65yo male with emphysema here for SOB found to have PNA and COVID+. please see H&P for details Hospital Course: as above Time Spent with Patient Time attestation: Total time spent providing and/or coordinating discharge services: 38 minutes Time spent: Greater than 30 minutes Exam Narrative: Exam Narrative: AF 97.8 167/87 76 16 94% ra Gen - NARD lying semirecumbent in bed Chest - distant,
[2020-07-16 17:19] LABS: Legionella pneumophila Ag Ur Not Detected (Not Detected)
--- NOTE | 2020-07-24 08:51 | PC.NURSE ---
Legionella Ag is negative. Dr. Violette jo.
== END 2020-07-16 16:40 | disposition home or self-care (01) | DRG 871 ==
LOC: ANHED 07:58 → ANHICU 09:59 → ANH3MEDSUR 07-14 20:08 → ANHICU 07-18 09:08
PROVIDERS: Emergency Medicine; Internal Medicine; Admitting Provider Family Medicine; Emergency Provider Emergency Medicine; PCP Internal Medicine; Visit Provider Internal Medicine
DX: A41.89 Other specified sepsis (principal); U07.1 COVID-19; J12.89 Other viral pneumonia; R65.21 Severe sepsis with septic shock; J44.1 Chronic obstructive pulmonary disease with (acute) exacerbation; J44.0 Chronic obstructive pulmonary disease with (acute) lower respiratory infection; N17.9 Acute kidney failure, unspecified; R09.02 Hypoxemia; E03.9 Hypothyroidism, unspecified; B96.89 Other specified bacterial agents as the cause of diseases classified elsewhere; I10 Essential (primary) hypertension; E78.5 Hyperlipidemia, unspecified; E86.0 Dehydration; Z96.611 Presence of right artificial shoulder joint; Z96.612 Presence of left artificial shoulder joint; Z87.891 Personal history of nicotine dependence; Z85.89 Personal history of malignant neoplasm of other organs and systems
CPT/HCPCS: 36415; 36556; 71045; 71275; 80053; 80069; 80202; 81001; 82248; 82728; 83605; 83615; 83735; 83880; 85025; 85027; 85380; 85610; 85730; 86140; 87040; 87070; 87077; 87205; 87449; 87635; 87804; 93005; 94640; 96361; 96374; 99291; A9270; C1751; C9803; J0131; J0456; J0696; J1100; J1644; J1650; J1940; J1956; J2543; J2930; J3370; J7030; Q9967; U0003

== ENCOUNTER 2022-01-25 14:51 | Emergency (ER) | payer BC, MEDICARE, SELFPAY ==
--- NOTE | ~2022-01-25 | CT_ITS ---
EXAMINATION: CT brain wo con INDICATION: Headache COMPARISON: None TECHNIQUE: Standard unenhanced head CT. The dose-length product (DLP) was 605.33 mGy-cm. The mA was a djusted according to patient size. Iterative reconstruction technique was employed. FINDINGS: There is no acute intraparenchymal hemorrhage. No evidence of mass lesion. No evidence of a cute infarction. There is mild periventricular and subcortical hypodensity probably related to small vessel ischemic disease. There is mild prominence of the sulci and ventricles related to cerebral atr ophy. Intracranial calcified cerebral atherosclerosis is noted. There are no extra-axial collections. There is no mass effect or midline shift. The orbits and soft tissues are unremarkable. There is mil d mucosal thickening of the paranasal sinuses. IMPRESSION: 1. No acute intracranial abnormality. 2. Age related findings. Reviewed, dictated and finalized at location F.
[2022-01-25 15:29] VITALS: BP 131/77; PULSE 87; RESP 16; TEMP 36.7; O2SAT 96
[2022-01-25 16:51] VITALS: BP 130/84; PULSE 83; RESP 18; O2SAT 99
[2022-01-25 17:34] LABS: Basophils Absolute Auto 0.1 K/mm3 (0.0-0.1); Basophils Percent Auto 0.8 % (0.2-1.2); Eosinophils Absolute Auto 0.1 K/mm3 (0-0.3); Eosinophils Percent Auto 1.3 % (0-4.4); Hematocrit 43.1 % (42.0-52.0); Immature Granulocyte Absolute 0.03 K/mm3 (0.00-0.031); Immature Granulocyte Percent A 0.3 % (0-0.5); Lymphocytes Percent Auto 8.9 % (18.3-44.2); Mean Corpuscular HGB Conc 32.5 g/dl (32-36); Mean Corpuscular Hemoglobin 29.9 pg (26-34); Mean Corpuscular Volume 92.1 fl (80-100); Mean Platelet Volume 9.1 fl (7.4-10.4); Monocytes Absolute Auto 1.1 K/mm3 (0.1-0.6); Monocytes Percent Auto 10.7 % (2.6-8.5); Neutrophils Absolute Auto 7.9 K/mm3 (1.3-6.7); Platelet Count Result 186 k/mm3 (150-375); Red Blood Count 4.68 M/mm3 (4.6-6.20); Red Cell Distribution Width 13.3 % (11.5-14.5); White Blood Count 10.1 K/mm3 (4.5-10.0)
[2022-01-25 17:44] LABS: Alanine Aminotransferase 13 U/L (4-50); Albumin Level 4.1 g/dL (3.5-5.1); Alkaline Phosphatase 87 U/L (38-126); Anion Gap 9 mmol/L (8-16); Aspartate Amino Transferase 22 U/L (17-59); Bilirubin,Total 0.7 mg/dL (0.2-1.3); Blood Urea Nitrogen 15 mg/dL (9-20); Calcium 8.7 mg/dL (8.4-10.2); Carbon Dioxide 26 mmol/L (22-30); Chloride 103 mmol/L (98-107); Estimated CRCL calculation 70 ml/min; Estimated Glomerular Filt Rate > 60; Glucose 88 mg/dL (65-110); Potassium 3.7 mmol/L (3.4-5.0); Sodium 138 mmol/L (137-145)
--- NOTE | 2022-01-25 17:47 | ED.HA ---
HPI - Headache General Chief Complaint: Headache Stated Complaint: headache Time Seen by Provider: 01/25/22 16:58 Source: patient Mode of arrival: ambulatory Limitations: no limitations History of Present Illness HPI Narrative: Patient is a 66-year-old male complaining of a headache, right-sided, throbbing, 9 out of 10, radiating to back of his head, accompanied by nausea, that started 4 days ago. Patient states that he has a history of headaches that is been ongoing almost every month since 2019 when he was diagnosed with head and neck cancer, which was treated with resection and chemotherapy. Patient states that he has a neurology appointment at [place] next month due to his headaches. Patient denies any speech or visual disturbance, focal weakness or numbness, unsteady gait, vomiting, fever or chills. Patient states that this is his typical headache Related Data Home Medications Medication Instructions Recorded Confirmed amlodipine 5 mg PO DAILY 07/12/20 07/12/20 levothyroxine 75 mcg PO DAILY 07/12/20 07/12/20 pantoprazole 40 mg PO QAM 07/12/20 07/12/20 rosuvastatin 10 mg PO DAILY 07/12/20 07/12/20 Trelegy Ellipta 1 inh INHALATION DAILY 07/16/20 07/16/20 gabapentin 900 mg PO TID 01/25/22 ondansetron HCl [Zofran] 8 mg PO Q8H PRN 01/25/22 Allergies Allergy/AdvReac Type Severity Reaction Status Date / Time tetracycline Allergy Rash Verified 01/25/22 17:00 Review of Systems Review of Systems: All systems reviewed & are unremarkable except as noted in HPI and below Constitutional: Constitutional: Denies body ache(s), Denies chills, Denies excessive sweating, Denies fatigue, Denies fever(s), Denies headache(s), Denies lethargy, Denies malaise, Denies weakness and Denies weight loss Eyes: Eyes: Denies blurry vision, Denies change in vision and Denies loss of vision ENT: Denies dizziness, Denies ear discharge, Denies headache(s), Denies lip swelling, Denies epistaxis, Denies nasal congestion, Denies neck pain, Denies throat swelling and Denies tongue swelling Cardiovascular: Cardiovascular: Denies chest pain, Denies chest pain at rest, Denies chest pain with activity, Denies diaphoresis, Denies rapid heart rate, Denies edema, Denies irregular heart rhythm, Denies lightheadedness, Denies palpitations, Denies dyspnea and Denies dyspnea on exertion Respiratory: Respiratory: Denies chest congestion, Denies cough, Denies hemoptysis, Denies dyspnea and Denies dyspnea on exertion Gastrointestinal: Gastrointestinal: Denies abdominal pain, Denies melena, Denies hematochezia, Denies diarrhea, Denies nausea, Denies vomiting and Denies hematemesis Musculoskeletal: Musculoskeletal: Denies abnormal gait, Denies deformity, Denies joint swelling, Denies limited range of motion, Denies neck pain and Denies numbness Neurologic: Denies Abnormal speech present, Denies abnormal gait, Denies confusion, Denies dizziness, Denies focal weakness, Denies loss of vision, Denies numbness, Denies Other visual disturbances, Denies Sensory deficit (Neuro) and Denies weakness Psychiatric: Psychiatric: Denies confusion, Denies depression, Denies auditory hallucinations, Denies homicidal ideation and Denies suicidal ideation Endocrine: Endocrine: Denies cold intolerance, Denies excessive sweating, Denies fatigue, Denies heat intolerance and Denies palpitations Hematologic/Lymphatic: Hematologic/Lymphatic: Denies easy bleeding and Denies easy bruising Allergic/Immunologic: Allergic/Immunologic: Denies lip swelling, Denies throat swelling and Denies tongue swelling PMFSH Past Medical History Medical History COPD (chronic obstructive pulmonary disease) History of throat cancer Hyperlipidemia Port-A-Cath in place Surgical History Surgical History History of arthroscopy of both knees S/p bilateral shoulder joint replacement Family History Family H
[2022-01-25 18:04] LABS: Erythrocyte Sedimentation Rate 75 mm/hr (0-20)
[2022-01-25 18:12] VITALS: BP 148/91; PULSE 85; RESP 16; O2SAT 94
[2022-01-25] MEDS: SODIUM CHLORIDE 0.9% IV 1,000 ML 999 ML IV CONT (18:55)
[2022-01-25] MEDS: KETOROLAC 30 MG/ML VIAL (*BKC) IV PUSH (19:05)
[2022-01-25] MEDS: METOCLOPRAMIDE HCL INJ 10 MG/2 ML VIAL IV PUSH (19:07)
[2022-01-25] MEDS: diphenhydrAMINE HCl INJ 50 MG/ML VIAL 25 MG IV PUSH (19:11)
[2022-01-25 20:10] VITALS: BP 153/96; PULSE 90; RESP 14; O2SAT 93
== END 2022-01-25 20:25 | disposition home or self-care (01) ==
PROVIDERS: Emergency Provider Emergency Medicine; PCP Internal Medicine
DX: R51.9 Headache, unspecified (principal); J44.9 Chronic obstructive pulmonary disease, unspecified; E78.5 Hyperlipidemia, unspecified; Z85.819 Personal history of malignant neoplasm of unspecified site of lip, oral cavity, and pharynx; Z96.612 Presence of left artificial shoulder joint; Z96.611 Presence of right artificial shoulder joint; Z87.891 Personal history of nicotine dependence
CPT/HCPCS: 36415; 70450; 80053; 85025; 85652; 96361; 96374; 96375; 99284; J1200; J1885; J2765; J7030

== ENCOUNTER 2022-05-02 10:28 | Inpatient (IN) | payer BC, MEDICARE, SELFPAY ==
[2022-05-02] VITALS (10 sets, daily range): BP systolic 155–174; BP diastolic 95–111; PULSE 99–109; RESP 14–20; TEMP 36.3–36.6; O2SAT 93–97; BMI 24.8
--- NOTE | ~2022-05-02 | CT_ITS ---
EXAMINATION: CT brain wo con DATE: 05/02/2022 22:38 INDICATION: Headache. TECHNIQUE: Computed tomography (CT) of the head was performed without intravenous contrast. The mA wa s adjusted according to patient size. Iterative reconstruction technique was employed. The dose-lengt h product was 605.33 mGy-cm. COMPARISON: Head CT 01/25/2022 FINDINGS: There are scattered areas of low attenuation in the cerebral white matter. There is no intr acranial hemorrhage, acute infarction, or abnormal intracranial mass lesion. The ventricles are dexter l in size. The orbits are normal. There is mucosal thickening in the paranasal sinuses. There is thic kening and sclerosis of the worrell of right maxillary sinus, consistent with chronic sinusitis. There is a small right mastoid effusion. IMPRESSION: 1. Stable moderate nonspecific cerebral white matter disease, which likely represents chronic small v essel ischemic disease. 2. Chronic sinusitis. Reviewed, dictated and finalized at location A. IMPRESSION: 1. Stable moderate nonspecific cerebral white matter disease, which likely repr esents chronic small vessel ischemic disease. 2. Chronic sinusitis.
--- NOTE | ~2022-05-02 | XR_ITS ---
EXAMINATION: XR chest 1V portable DATE: 05/02/2022 11:20 INDICATION: Shortness of breath and nausea TECHNIQUE: frontal view of the chest was obtained. COMPARISON: Chest radiograph dated 07/13/2020 FINDINGS: Elevation of the right hemidiaphragm. Increased lucency and architectural distortion in the upper cam g zones consistent with emphysema. No focal airspace opacities, pulmonary edema, pleural effusion or pneumothorax. The cardiomediastinal silhouette is normal. Widening of the bilateral acromioclavicular joint spaces likely related to distal clavicle resections. Suture anchor at the right humeral head l ikely rotator cuff repair. IMPRESSION: 1. Emphysema and elevation of the right hemidiaphragm. Reviewed, dictated and finalized at location A.
--- NOTE | ~2022-05-02 | XR_ITS ---
EXAMINATION: XR chest 1V portable DATE: 05/04/2022 08:10 INDICATION: Shortness of breath. TECHNIQUE: A single frontal view of the chest was obtained on 2 radiographs. COMPARISON: Chest single view 05/02/2022, chest CT 05/02/2022 FINDINGS: There is chronic elevation of right hemidiaphragm. There are lucencies in the lungs, consis tent with emphysema. There is mild atelectasis in right midlung zone and at the lung bases. No pleura l effusion or pneumothorax. The heart size is normal. There are surgical clips in right neck. There i s a suture anchor in right humeral head. IMPRESSION: 1. Emphysema and mild atelectasis. 2. Chronic elevation of right hemidiaphragm. Reviewed, dictated and finalized at location A.
--- NOTE | ~2022-05-02 | CT_ITS ---
EXAMINATION: CTA chest PE abdomen pel DATE: 05/02/2022 13:19 INDICATION: Chest pain. Elevated d-dimer. TECHNIQUE: Computed tomography (CT) pulmonary angiogram of the chest was performed with 100 mL Omnipa que-350 intravenous contrast. Additional 3D reconstructions utilizing coronal maximum intensity proje ction (MIP) were performed. CT of the abdomen and pelvis was performed with intravenous contrast util izing the same contrast bolus following a short delay. Automated exposure control and iterative recon struction technique were employed. The dose-length product was 1161.72 mGy-cm. COMPARISON: 07/15/2020 FINDINGS: Chest: Excellent contrast opacification of the pulmonary arteries. There is mild streak artifact from dense contrast in the superior vena cava and right atrium. Mild scattered respiratory motion artifact which does not significantly limit evaluation. No pulmonary embolism. Chronic elevation of the right hemid iaphragm with volume loss in the right lower lobe. Region of compressive atelectasis at the posterior medial basilar right lower lobe. Groundglass opacity in the remainder of the basilar right lower lob e most likely additional atelectasis although differential would include less likely asymmetric pulmo nary edema or pneumonia. Severe emphysema with upper lung predominance. Linear atelectasis/scarring a t the posterior aspect of the bilateral upper lobes which extends into the lingula on the left. There are a few small calcified nodules in the right lower lobe along with calcified paraesophageal lymph nodes consistent with old granulomatous disease. [place] opacity in the infrahilar left lower lobe sai suring approximately 2 cm in length and measuring proximally 7 x 6 mm in maximal orthogonal dimension s. 4 mm subpleural nodule in the posterior left lower lobe. No pleural effusion. Small amount of mucu s 17 the dependent aspect of the trachea and right mainstem bronchus. Heart size is normal. No perica rdial effusion. No pathologically enlarged thoracic lymphadenopathy. Abdomen/pelvis: Liver, gallbladder, pancreas, bilateral adrenal glands and kidneys are normal. Splenic calcifications consistent with old granulomatous disease. There appears to be some wall thickening along the descen ding and sigmoid colon suspicious for colitis although specificities decreased by the decompressed st ate of the colon there are few scattered colonic diverticula without adjacent inflammatory change to suggest diverticulitis. No bowel obstruction. Bladder is normal. 2.5 cm diameter fluid collection at the cephalad aspect of the right hemiscrotum and partially visualized at least 1.3 cm fluid collectio n at the cephalad aspect of the left hemiscrotum which could represent either small hydroceles or lar ge epididymal cysts. Mild prostatomegaly measuring 4.2 x 3.3 cm. No free intraperitoneal gas or fluid . No pathologically enlarged abdominal or pelvic lymphadenopathy. Very small fat-containing umbilical hernia. There is calcified atherosclerosis of the aorta and many of the other arteries. IMPRESSION: 1. No pulmonary embolism. 2. Severe emphysema. 3. Groundglass opacity and some peripheral consolidation in the right lower lobe likely representing atelectasis with chronic elevation of the right hemidiaphragm and decreased volume in the right lower lobe. Differential would include less likely mild asymmetric pulmonary edema or pneumonia. 4. 2 cm x 6 x 7 mm oblong nodular opacity in the left lower lobe most likely additional atelectasis b ut would recommend six-month follow-up chest CT. 5. Suggestion of possible wall thickening along the distal colon concerning for colitis which could b e infectious, inflammatory or ischemic in etiology. Appearance may however be artifact of decompresse d state. 6. Mild prostatomegaly. Reviewed, dictated and finalized at loc
--- NOTE | ~2022-05-02 | CT_ITS ---
EXAMINATION: CT soft tissue neck wo con DATE: 05/02/2022 22:39 INDICATION: Neck pain. Right neck sarcoma. TECHNIQUE: Computed tomography (CT) of the neck was performed without intravenous contrast. Automated exposure control and iterative reconstruction technique were employed. The dose-length product was 4 97.67 mGy-cm. COMPARISON: None FINDINGS: There is moderate emphysema. There is mild scarring at the lung apices. There are surgical changes in right neck with surgical clips and architectural distortion. There is ill-defined soft tis cesar in right neck with erosions of the right side of the C2 and C3 vertebral bodies. There is a small right mastoid effusion. There is mucosal thickening in the paranasal sinuses. There is mucosal thick ening in the pharynx consistent with changes of radiation therapy. There is asymmetry of the larynx s uspicious for unilateral vocal cord paralysis. There is thickening and sclerosis of the worrell of righ t maxillary sinus, consistent with chronic sinusitis. There is severe cervical spondylosis. IMPRESSION: 1. Ill-defined soft tissue in right neck with erosions of the C2 and C3 vertebral bodies suspicious f or malignancy. Infection and aneurysm are not excluded. Comparison with outside imaging is recommende d. CT with contrast is recommended. Reviewed, dictated and finalized at location A. IMPRESSION: 1. Ill-defined soft tissue in right neck with erosions of the C2 and C3 vertebr al bodies suspicious for malignancy. Infection and aneurysm are not excluded. C omparison with outside imaging is recommended. CT with contrast is recommended.
--- NOTE | ~2022-05-02 | US_ITS ---
EXAMINATION: US venous doppler [facility] DATE: 05/04/2022 12:30 INDICATION: Lower limb pain TECHNIQUE: Grayscale ultrasound images without and with compression and Doppler ultrasound images of the bilateral lower extremity veins were obtained. COMPARISON: None. FINDINGS: The visualized portions of right common femoral vein, profunda (deep) femoral vein, femoral vein, pop liteal vein, posterior tibial veins, peroneal veins, gastrocnemius vein and greater saphenous vein ou tflow are patent. The visualized portions of left common femoral vein, profunda femoral vein, femoral vein, popliteal v ein, posterior tibial veins, peroneal veins, gastrocnemius vein and greater saphenous vein outflow ar e patent. IMPRESSION: 1. No deep venous thrombosis in either lower limb. Reviewed, dictated and finalized at location A.
--- NOTE | 2022-05-02 10:37 | ECG_ITS ---
Measurements Intervals [place] Rate: 102 P: 74 RI: 148 QRS: 51 QRSD: 98 T: 69 QT: 369 QTc: 481 Interpretive Statements SINUS TACHYCARDIA POSSIBLE LEFT ATRIAL ENLARGEMENT DELAYED PRECORDIAL R/S TRANSITION BASELINE ARTIFACT- I, II, III, AVR, AVL, AVF, V4-V6 BORDERLINE ECG Electronically Signed On 05-02-2022 14:38:03 CDT by Jens Boyce D.O.
--- NOTE | 2022-05-02 11:04 | ED.GENADULT ---
HPI - General Adult General Chief complaint: Shortness of Breath/Dyspnea Stated complaint: sob Time Seen by Provider: 05/02/22 10:49 Source: RN notes reviewed History of Present Illness HPI narrative: Patient presents emergency department from home for possible dehydration. History is per the patient and the patient has a history of tonsillar cancer is no longer receiving treatment but does get 6 weeks scans to continue to monitor. Per the the patient has trouble eating and drinking at all times but has been having decreased p.o. intake for the past several days the patient does have a chronic cough that has been worse that is nonproductive patient states that over the past several days he has developed pain in the lower midsternal chest and the upper abdomen has been associated with nausea denies any fevers or chills diarrhea or any other symptoms patient did take a Zofran at home this morning with no relief Related Data Home Medications Medication Instructions Recorded Confirmed amlodipine 5 mg tablet 5 mg PO DAILY 07/12/20 05/02/22 levothyroxine 50 mcg tablet 75 mcg PO DAILY 07/12/20 05/02/22 pantoprazole 40 mg tablet,delayed 40 mg PO QAM 07/12/20 05/02/22 release rosuvastatin 10 mg tablet 10 mg PO DAILY 07/12/20 05/02/22 fluticasone fur. 100 mcg-umeclid 1 inh inhalation DAILY 07/16/20 05/02/22 62.5 mcg-vilant 25 mcg inhalat.powder (Trelegy Ellipta) ondansetron HCl 8 mg tablet 8 mg PO Q8H PRN Nausea 01/25/22 05/02/22 albuterol sulfate 90 mcg/actuation 1 - 2 puff inhalation DAILY PRN 05/02/22 05/02/22 aerosol inhaler Shortness Of Breath duloxetine 30 mg capsule,delayed 30 mg PO DAILY 05/02/22 05/02/22 release gabapentin 300 mg capsule 900 mg PO TID 05/02/22 05/02/22 hydromorphone 4 mg tablet 4 mg PO TID PRN headache 05/02/22 05/02/22 Allergies Allergy/AdvReac Type Severity Reaction Status Date / Time tetracycline Allergy Rash Verified 01/25/22 17:00 Review of Systems Review of Systems: Gen.: Denies fevers or chills ENT: Denies congestion Respiratory: reports shortness of breath and cough CV: Reports lower midsternal chest pain GI: Reports abdominal pain nausea vomiting denies diarrhea Musculoskeletal: Denies back pain or muscle pain Neuro: Denies numbness, tingling, weakness or focal weakness Skin: Denies rash Except as documented, all other systems reviewed and negative [facility] Past Medical History Medical History (Updated 05/02/22 @ 18:06 by Kyler Ferrera DO) Chronic obstructive pulmonary disease Hyperlipidemia Hypertension Hypothyroidism Tonsillar cancer Surgical History Surgical History (Updated 05/02/22 @ 15:17 by Gretel Gabriel PA-C) History of arthroplasty of both shoulders History of arthroscopy of both knees Port-A-Cath in place Family History Family History Father Cancer COPD (chronic obstructive pulmonary disease) Mother Cancer Sibling Mental disorder Social History Social History (Updated 05/02/22 @ 15:18 by Gretel Gabriel PA-C) Social History: The patient lives in [place] with his . They have 1 daughter and 2 sons. He is retired from working at the [employer]. He is a former smoker. Consumes alcohol socially and in moderation. No illicit substance use. He designates his as his surrogate decision maker and he wishes to be a full code. Smoking status: Former smoker Alcohol intake: former Spiritual care concerns: No Course Course Emergency Course: Discussed with NANDO Majano for Dr. Becker presentation work-up agrees with admission agrees to start patient on Levaquin and Flagyl for possible pneumonia and colitis Discussed with patient and family results of workup and diagnosis. Discussed need for admission. Patient and family understand and agree to current treatment plan Vital Signs Vital signs: Vital Signs Temperature 97.4 F L 05/02/22 10:33 Pulse Rate 10
[2022-05-02] MEDS: ONDANSETRON INJ 4 MG/2 ML VIAL IV PUSH (11:32)
[2022-05-02] MEDS: SODIUM CHLORIDE 0.9% IV 1,000 ML 999 ML IV CONT ×2 (11:32→14:54)
[2022-05-02] MEDS: FAMOTIDINE 20 MG/2 ML VIAL IV PUSH (11:32)
[2022-05-02 11:33] LABS: SARS-CoV-2 RNA PCR Negative
[2022-05-02 12:16] LABS: Basophils Percent Auto 0.3 % (0.2-1.2); Hematocrit 49.5 % (42.0-52.0); Hemoglobin 15.6 g/dL (14.0-18.0); Immature Granulocyte Absolute 0.03 K/mm3 (0.00-0.031); Immature Granulocyte Percent A 0.4 % (0-0.5); Lymphocytes Absolute Auto 0.27 K/mm3 (0.9-3.2); Lymphocytes Percent Auto 3.7 % (18.3-44.2); Mean Corpuscular HGB Conc 31.5 g/dl (32-36); Mean Corpuscular Hemoglobin 27.5 pg (26-34); Mean Corpuscular Volume 87.3 fl (80-100); Mean Platelet Volume 8.7 fl (7.4-10.4); Monocytes Absolute Auto 0.2 K/mm3 (0.1-0.6); Monocytes Percent Auto 2.9 % (2.6-8.5); Neutrophils Absolute Auto 6.8 K/mm3 (1.3-6.7); Neutrophils Percent Auto 92.7 % (45.5-73.1); Platelet Count Result 254 k/mm3 (150-375); Red Blood Count 5.67 M/mm3 (4.6-6.20); Red Cell Distribution Width 13.2 % (11.5-14.5); White Blood Count 7.3 K/mm3 (4.5-10.0)
[2022-05-02 12:28] LABS: INR 1.1; Prothrombin Time 13.4 Seconds (11.1-14.7)
[2022-05-02 12:29] LABS: Partial Thromboplastin Time 26.4 SECONDS (22.3-36.8)
[2022-05-02 12:30] LABS: Alanine Aminotransferase 15 U/L (6-50); Albumin Level 4.4 g/dL (3.5-5.1); Alkaline Phosphatase 102 U/L (38-126); Anion Gap 13 mmol/L (8-16); Aspartate Amino Transferase 17 U/L (17-59); Bilirubin,Total 0.6 mg/dL (0.2-1.3); Blood Urea Nitrogen 11 mg/dL (9-20); Calcium 8.6 mg/dL (8.4-10.2); Carbon Dioxide 29 mmol/L (22-30); Chloride 95 mmol/L (98-107); Estimated CRCL calculation 67 ml/min; Estimated Glomerular Filt Rate > 60; Glucose 136 mg/dL (65-110); Sodium 137 mmol/L (137-145)
[2022-05-02 12:39] LABS: D Dimer 2.45 ug/mL (<0.48)
[2022-05-02 12:39] LABS: Appearance Urine Clear (Clear); Bilirubin Urine Negative (Negative); Glucose Urine UA Negative (Negative); Ketones Urine 2+ mg/dL (Negative); Leukocyte Esterase Ur Negative LEU/UL (Negative); Nitrate Urine Negative (Negative); Protein Urine Negative (Negative); Urobilinogen Urine 0.2 mg/dL (<2.0)
[2022-05-02 12:40] LABS: Add Urine Microscopic? YES; Blood Urine Trace-Intact (Negative); Color Urine Light Yellow (Yellow)
[2022-05-02 12:43] LABS: Amorphous Sediment Urine Few; Mucus Urine Rare /lpf
[2022-05-02 12:47] LABS: Troponin I < 0.012 ng/mL (0.000-0.034)
[2022-05-02 12:48] LABS: Lipase 35 U/L (23-300)
[2022-05-02] MEDS: PROMETHAZINE HCL 25 MG/ML AMPUL 12.5 MG IV PUSH ×2 (14:55→21:21)
[2022-05-02] MEDS: metroNIDAZOLE 500 MG/ISO 100ML 500 MG/100 ML BAG 100 MG IVPB ×2 (14:59→20:31)
[2022-05-02 15:15] LABS: Lactic Acid Reflex 1.2 mmol/L (0.7-2.0)
--- NOTE | 2022-05-02 15:15 | PM.IMHP ---
H&P: HPI History of Present Illness Date/Time: 05/02/22 15:15 Chief Complaint: Shortness of breath and lethargy. Narrative: This is a 67-year-old male with history of tonsillar cancer, sarcoma, hypertension, hyperlipidemia, hypothyroidism, GERD, peptic ulcers, and COPD who presented to the emergency department from home for evaluation of shortness of breath and lethargy. He was diagnosed with squamous cell carcinoma of the tonsil in 2010 and received chemoradiation. 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 He underwent tumor debulking surgery in November 2020 followed by proton therapy. Since that time he has had pretty significant dysphagia and despite the risk for aspiration he has been adamant that he does not want a feeding tube. According to the patient's , he coughs or clears his throat with eating and drinking consistently though he has had no obvious episodes of aspiration as of late. More recently he was admitted to [facility] in early March 2022 at which time it was discovered that he probably had recurrence of the sarcoma though due to significant scar tissue the patient declined biopsy of the area for confirmation after risks were discussed with him. He has not had any further treatment. Over the past month he has nearly lost all ability to move his right arm due to tumor invasion. He has lost nearly 60 lb since last November despite trying to consume 1500 calories per day. admits that probably half of what he eats and drinks is regurgitated back up due to the dysphagia. She is worried that he is becoming dehydrated as he has had little oral intake the last several days. In addition to his chronic dysphagia, he appetite is also poor due to ongoing nausea and epigastric pain that he is not able to acurately describe. He has also been sleeping much more than usual the past several days and he is just not as interactive as usual. He was afebrile on arrival to the emergency department and his SpO2 has been in the mid to upper 90s on room air. He does have oxygen at home that he uses p.r.n. and about 5 days ago the patient's tells me that he was complaining of significant shortness of breath and his SpO2 was 85% at that time. He felt better after wearing oxygen for couple of hours and he has not had any oxygen requirement since that time. His labs were surprisingly unremarkable aside from an elevated D-dimer; urine showed 2+ ketones. CTA of the chest showed no evidence of pulmonary embolism but did note severe emphysema as well as ground-glass opacities and some peripheral consolidation the right lower lobe likely community representative of atelectasis though differential includes asymmetric pulmonary edema or pneumonia though that seems less likely. An oblong nodular opacity was noted in the left lower lobe which is most likely additional atelectasis but radiologist recommend six-month follow-up. Also noted was the suggestion of possible wall thickening along the distal colon concerning for colitis. With further questioning he endorses having intermittent problems with constipation though his bowels have been moving well recently with his bowel regimen. He had a good and normal bowel movement just yesterday. His abdominal pain is situated in the epigastric region, not in the lower abdomen. The only complaint he has at the time my evaluation of this that of a headache in the epigastric discomfort. He feels bit short of breath but not significantly so. He also denies fever, chills, sweats, congestion, sore throat, chest pain, pleuritic pain, palpitations, cough, hematemesis, melena, hematochezia, and dysuria. Review of Systems Review of Systems: Twelve systems were reviewed and are negative except for as per HPI. [facility] Past Medical History Medical History (Updated 05/02/22
[2022-05-02] MEDS: SODIUM CHLORIDE 0.9% IV 1,000 ML 125 ML IV CONT (18:00)
[2022-05-02 19:31] LABS: Troponin I 0.014 ng/mL (0.000-0.034)
[2022-05-02] MEDS: SUCRALFATE SUSP 100 MG/ML 10 ML UDC 1000 MG PO (21:19)
[2022-05-02] MEDS: HYDROmorphone HCL (*CRX) 4 MG TABLET PO (21:19)
[2022-05-02] MEDS: PANTOPRAZOLE SODIUM IV 40 MG VIAL IV PUSH (21:20)
[2022-05-02] MEDS: amLODIPine BESYLATE 5 MG TABLET PO (21:22)
[2022-05-02] MEDS: GABAPENTIN 300 MG CAPSULE 900 MG PO (21:23)
[2022-05-03] VITALS (10 sets, daily range): BP systolic 140–156; BP diastolic 81–93; PULSE 91–121; RESP 18–20; TEMP 36.4–37.1; O2SAT 92–98
[2022-05-03] MEDS: metroNIDAZOLE 500 MG/ISO 100ML 500 MG/100 ML BAG 100 MG IVPB ×5 (01:27→23:18)
[2022-05-03] MEDS: PROMETHAZINE HCL 25 MG/ML AMPUL 12.5 MG IV PUSH (01:28)
[2022-05-03] MEDS: SUCRALFATE SUSP 100 MG/ML 10 ML UDC 1000 MG PO ×3 (05:20→16:48)
[2022-05-03] MEDS: LEVOTHYROXINE SODIUM 75 MCG TABLET PO (05:21)
[2022-05-03 05:26] LABS: Basophils Percent Auto 0.4 % (0.2-1.2); Hematocrit 51.7 % (42.0-52.0); Hemoglobin 16.4 g/dL (14.0-18.0); Immature Granulocyte Absolute 0.04 K/mm3 (0.00-0.031); Immature Granulocyte Percent A 0.4 % (0-0.5); Lymphocytes Absolute Auto 0.55 K/mm3 (0.9-3.2); Lymphocytes Percent Auto 5.2 % (18.3-44.2); Mean Corpuscular HGB Conc 31.7 g/dl (32-36); Mean Corpuscular Hemoglobin 27.9 pg (26-34); Mean Corpuscular Volume 87.9 fl (80-100); Mean Platelet Volume 8.6 fl (7.4-10.4); Monocytes Absolute Auto 0.9 K/mm3 (0.1-0.6); Monocytes Percent Auto 8.9 % (2.6-8.5); Neutrophils Percent Auto 85.1 % (45.5-73.1); Platelet Count Result 293 k/mm3 (150-375); Red Blood Count 5.88 M/mm3 (4.6-6.20); Red Cell Distribution Width 13.4 % (11.5-14.5); White Blood Count 10.6 K/mm3 (4.5-10.0)
[2022-05-03 05:37] LABS: Alanine Aminotransferase 14 U/L (6-50); Albumin Level 3.9 g/dL (3.5-5.1); Alkaline Phosphatase 92 U/L (38-126); Anion Gap 16 mmol/L (8-16); Aspartate Amino Transferase 23 U/L (17-59); Bilirubin,Total 0.8 mg/dL (0.2-1.3); Blood Urea Nitrogen 10 mg/dL (9-20); Calcium 8.1 mg/dL (8.4-10.2); Carbon Dioxide 18 mmol/L (22-30); Chloride 98 mmol/L (98-107); Estimated CRCL calculation 90 ml/min; Estimated Glomerular Filt Rate > 60; Glucose 122 mg/dL (65-110); Sodium 132 mmol/L (137-145)
[2022-05-03] MEDS: SODIUM CHLORIDE 0.9% IV 1,000 ML 100 ML IV CONT ×2 (06:36→10:02)
[2022-05-03] MEDS: FLUTICASONE/UMECLIDIN/VILANTER 100-62.5-25 MCG ELLIPTA 1 PUFF INHALATION (08:29)
[2022-05-03] MEDS: PANTOPRAZOLE SODIUM IV 40 MG VIAL IV PUSH (09:59)
--- NOTE | 2022-05-03 10:45 | P.PNIM_ITS ---
Progress Note: A&P Assessment and Plan (1) Dehydration: Code(s): E86.0 - Dehydration Status: Acute Assessment and Plan: * Secondary to poor oral intake from ongoing nausea and epigastric pain. * Labs are getting better * Does seem to be hemo concentrated * IV fluid currently (2) COPD with emphysema: Code(s): J43.9 - Emphysema, unspecified Status: Acute Assessment and Plan: * No acute bronchospasm. * Continue maintenance inhalers. * Nebulizers available p.r.n. * Will give one dose methylprednisone 40mg IV * Supplemental oxygen if indicated * Chest ct shows severe emphysema, and possible pna * Currently on levaquin and flagyl * WBC 10.6 (3) Gastroesophageal reflux disease: Code(s): K21.9 - Gastro-esophageal reflux disease without esophagitis Status: Acute Assessment and Plan: * Plan is as detailed above. * Protonix 40mg PO daily * Increase to BID (4) Hypertension: Code(s): I10 - Essential (primary) hypertension Status: Chronic Assessment and Plan: * Current Blood pressure 156/89 * Continue home amlodipine 5mg PO Daily * Trend BP * Seems to be related to pain * adjust therapy as indicated (5) Hypothyroidism: Code(s): E03.9 - Hypothyroidism, unspecified Status: Chronic Assessment and Plan: Continue levothyroxine and check TSH. (6) Sarcoma of head and neck: Onset Date: 11/2020 Code(s): C76.0 - Malignant neoplasm of head, face and neck Status: Acute Assessment and Plan: * Recently hospitalized at [place] at which time he declined treatment to confirm the return of sarcoma of the head and neck. * Head ct negative for acute intracranial process (7) Colitis: Code(s): K52.9 - Noninfective gastroenteritis and colitis, unspecified Status: Acute Assessment and Plan: * Patient has a difficult time describing his epigastric pain. * CT shows . Suggestion of possible wall thickening along the distal colon concerning for colitis which could be infectious, inflammatory or ischemic in etiology.? * Continue flagyl and levaquin * Protonix on board increase to BID * Carafate also added due to the history of ulcers * Clear liquids for now (8) Headache: Code(s): R51.9 - Headache, unspecified Status: Acute Assessment and Plan: * Head ct negative for findings * Give headache cocktail * Dilaudid on board * Seems chronic * 1mg IV daludid once (9) Dysphasia: Code(s): R47.02 - Dysphasia Status: Acute Assessment and Plan: * ST on board * Modified swallow study ordered * Clear liquids for now Time Spent With Patient Time with patient: Greater than 35 minutes Subjective Date/time seen: 05/03/22 1045 Interval history: 05/03/22 1045 Patient seems uncomfortable as I walked in the room. He would not answer most of my questions however he did say was in pain. He said it is the epigastric region of his abdomen. He does look a little short of breath as he was tripoding a few times. His daughter was in the room and stated that he has been feeling nauseous however he was not told anybody he is nauseous. He also keeps rubbing his head and grabbed his head. A complete review of systems unable to be obtained due the patient's mental status. 05/02/22? 15:15 Thi
--- NOTE | 2022-05-03 10:45 | PM.IMPN ---
Progress Note: A&P Assessment and Plan (1) Dehydration: Code(s): E86.0 - Dehydration Status: Acute Assessment and Plan: Secondary to poor oral intake from ongoing nausea and epigastric pain. Labs are getting better Does seem to be hemo concentrated IV fluid currently (2) COPD with emphysema: Code(s): J43.9 - Emphysema, unspecified Status: Acute Assessment and Plan: No acute bronchospasm. Continue maintenance inhalers. Nebulizers available p.r.n. Will give one dose methylprednisone 40mg IV Supplemental oxygen if indicated Chest ct shows severe emphysema, and possible pna Currently on levaquin and flagyl WBC 10.6 (3) Gastroesophageal reflux disease: Code(s): K21.9 - Gastro-esophageal reflux disease without esophagitis Status: Acute Assessment and Plan: Plan is as detailed above. Protonix 40mg PO daily Increase to BID (4) Hypertension: Code(s): I10 - Essential (primary) hypertension Status: Chronic Assessment and Plan: Current Blood pressure 156/89 Continue home amlodipine 5mg PO Daily Trend BP Seems to be related to pain adjust therapy as indicated (5) Hypothyroidism: Code(s): E03.9 - Hypothyroidism, unspecified Status: Chronic Assessment and Plan: Continue levothyroxine and check TSH. (6) Sarcoma of head and neck: Onset Date: 11/2020 Code(s): C76.0 - Malignant neoplasm of head, face and neck Status: Acute Assessment and Plan: Recently hospitalized at [place] at which time he declined treatment to confirm the return of sarcoma of the head and neck. Head ct negative for acute intracranial process (7) Colitis: Code(s): K52.9 - Noninfective gastroenteritis and colitis, unspecified Status: Acute Assessment and Plan: Patient has a difficult time describing his epigastric pain. CT shows . Suggestion of possible wall thickening along the distal colon concerning for colitis which could be infectious, inflammatory or ischemic in etiology.? Continue flagyl and levaquin Protonix on board increase to BID Carafate also added due to the history of ulcers Clear liquids for now (8) Headache: Code(s): R51.9 - Headache, unspecified Status: Acute Assessment and Plan: Head ct negative for findings Give headache cocktail Dilaudid on board Seems chronic 1mg IV daludid once (9) Dysphasia: Code(s): R47.02 - Dysphasia Status: Acute Assessment and Plan: ST on board Modified swallow study ordered Clear liquids for now Time Spent With Patient Time with patient: Greater than 35 minutes Subjective Date/time seen: 05/03/22 1045 Interval history: 05/03/22 104 Patient seems uncomfortable as I walked in the room. He would not answer most of my questions however he did say was in pain. He said it is the epigastric region of his abdomen. He does look a little short of breath as he was tripoding a few times. His daughter was in the room and stated that he has been feeling nauseous however he was not told anybody he is nauseous. He also keeps rubbing his head and grabbed his head. A complete review of systems unable to be obtained due the patient's mental status. 05/02/22? 15:15 This is a 67-year-old male with history of tonsillar cancer, sarcoma, hypertension, hyperlipidemia, hypothyroidism, GERD, peptic ulcers, and COPD who presented to the emergency department from home for evaluation of shortness of breath and lethargy. He was diagnosed with squamous cell carcinoma of the tonsil in 2010 and received chemoradiation. 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 He
[2022-05-03] MEDS: HYDROmorphone HCL INJ (*CRX) 1 MG/ML SYR IV PUSH (11:31)
[2022-05-03] MEDS: GABAPENTIN 300 MG CAPSULE 900 MG PO ×2 (13:42→16:49)
[2022-05-03] MEDS: methylPREDNISolone SOD SUCC 40 MG VIAL IV PUSH (15:03)
[2022-05-03] MEDS: POTASSIUM CHLORIDE 20 MEQ PACKET (FOR LIQUID) 40 MEQ PO (16:48)
[2022-05-04] VITALS (15 sets, daily range): BP systolic 114–161; BP diastolic 56–95; PULSE 86–109; RESP 18–22; TEMP 36.6–36.9; O2SAT 95–99; BMI 24.8
[2022-05-04] MEDS: SODIUM CHLORIDE 0.9% IV 1,000 ML 100 ML IV CONT (04:01)
[2022-05-04] MEDS: HYDROmorphone HCL INJ (*CRX) 1 MG/ML SYR IV PUSH ×3 (04:45→17:07)
[2022-05-04] MEDS: metroNIDAZOLE 500 MG/ISO 100ML 500 MG/100 ML BAG 100 MG IVPB ×2 (06:01→18:41)
[2022-05-04 06:51] LABS: Basophils Percent Auto 0.1 % (0.2-1.2); Hematocrit 51.2 % (42.0-52.0); Hemoglobin 16.7 g/dL (14.0-18.0); Immature Granulocyte Absolute 0.03 K/mm3 (0.00-0.031); Immature Granulocyte Percent A 0.4 % (0-0.5); Lymphocytes Absolute Auto 0.65 K/mm3 (0.9-3.2); Lymphocytes Percent Auto 7.6 % (18.3-44.2); Mean Corpuscular HGB Conc 32.6 g/dl (32-36); Mean Corpuscular Hemoglobin 27.8 pg (26-34); Mean Corpuscular Volume 85.3 fl (80-100); Mean Platelet Volume 8.8 fl (7.4-10.4); Monocytes Absolute Auto 1.1 K/mm3 (0.1-0.6); Monocytes Percent Auto 12.5 % (2.6-8.5); Neutrophils Absolute Auto 6.8 K/mm3 (1.3-6.7); Neutrophils Percent Auto 79.4 % (45.5-73.1); Platelet Count Result 269 k/mm3 (150-375); Red Cell Distribution Width 13.5 % (11.5-14.5); White Blood Count 8.6 K/mm3 (4.5-10.0)
[2022-05-04 07:23] LABS: Alanine Aminotransferase 15 U/L (6-50); Alkaline Phosphatase 87 U/L (38-126); Anion Gap 13 mmol/L (8-16); Aspartate Amino Transferase 23 U/L (17-59); Bilirubin,Total 0.9 mg/dL (0.2-1.3); Blood Urea Nitrogen 16 mg/dL (9-20); Calcium 8.4 mg/dL (8.4-10.2); Carbon Dioxide 24 mmol/L (22-30); Chloride 99 mmol/L (98-107); Estimated CRCL calculation 79 ml/min; Estimated Glomerular Filt Rate > 60; Glucose 141 mg/dL (65-110); Magnesium 1.7 mg/dL (1.6-2.3); Potassium 2.7 mmol/L (3.4-5.0); Sodium 136 mmol/L (137-145)
[2022-05-04] MEDS: FLUTICASONE/UMECLIDIN/VILANTER 100-62.5-25 MCG ELLIPTA 1 PUFF INHALATION (07:37)
--- NOTE | 2022-05-04 08:00 | PM.IMPN ---
Progress Note: A&P Assessment and Plan (1) Acute respiratory failure: Code(s): J96.00 - Acute respiratory failure, unspecified whether with hypoxia or hypercapnia Status: Acute Assessment and Plan: ABG ordered Tripod position multiple times Hyperventilating Probably related to COPD Does not appear to be fluid overloaded Supplement oxygen as indicated Pulm consulted (2) COPD with emphysema: Code(s): J43.9 - Emphysema, unspecified Status: Acute Assessment and Plan: No acute bronchospasm. Continue maintenance inhalers. Nebulizers scheduled ABD ordered Chest XR shows severe emphysema Will give one dose methylprednisone 80mg IV Eliz Methlypred 40mg IV BID Supplemental oxygen if indicated Chest ct shows severe emphysema, and possible pna Feel that this could be an acute exacerbation, as he has increased sputum, and shortness of breath Currently on levaquin and flagyl WBC 8.6 (3) Dehydration: Code(s): E86.0 - Dehydration Status: Acute Assessment and Plan: Secondary to poor oral intake from ongoing nausea and epigastric pain. Labs are getting better Does seem to be hemo concentrated with H/H 16.7/51.2 IV fluid currently (4) Gastroesophageal reflux disease: Code(s): K21.9 - Gastro-esophageal reflux disease without esophagitis Status: Acute Assessment and Plan: Plan is as detailed above. Protonix 40mg PO daily Increase to BID (5) Hypertension: Code(s): I10 - Essential (primary) hypertension Status: Chronic Assessment and Plan: Current Blood pressure 149/56 Continue home amlodipine 5mg PO Daily Trend BP Seems to be related to pain adjust therapy as indicated (6) Hypothyroidism: Code(s): E03.9 - Hypothyroidism, unspecified Status: Chronic Assessment and Plan: Continue levothyroxine Check TSH (7) Sarcoma of head and neck: Onset Date: 11/2020 Code(s): C76.0 - Malignant neoplasm of head, face and neck Status: Acute Assessment and Plan: Recently hospitalized at [place] at which time he declined treatment to confirm the return of sarcoma of the head and neck. Head ct negative for acute intracranial process (8) Colitis: Code(s): K52.9 - Noninfective gastroenteritis and colitis, unspecified Status: Acute Assessment and Plan: Patient has a difficult time describing his epigastric pain. CT shows . Suggestion of possible wall thickening along the distal colon concerning for colitis which could be infectious, inflammatory or ischemic in etiology.? Continue flagyl and levaquin Protonix on board increase to BID Carafate also added due to the history of ulcers Back off to NPO for now (9) Headache: Code(s): R51.9 - Headache, unspecified Status: Acute Assessment and Plan: Head ct negative for findings Give headache cocktail Dilaudid on board Seems chronic (10) Dysphasia: Code(s): R47.02 - Dysphasia Status: Acute Assessment and Plan: ST on board Modified swallow study ordered Back him to NPO for now Time Spent With Patient Time with patient: Greater than 35 minutes Subjective Date/time seen: 05/04/22 08:00 Interval history: 05/04/22 0800 Patient is showing severe signs of respiratory distress. Patient is unable to complete sentences or even hold a conversation at this time. Chest x-ray does not show any pneumonia however he does have severe emphysema. He also states that he is in a lot of pain. He is using accessory muscle breathing and he is very tech at neck. He saying that he is having chest pain that sternal and he is nauseous with epigastric pain. I was unable to really get a good review of systems due to the respiratory status at this time. Troponins ordered, EKG
--- NOTE | 2022-05-04 08:00 | P.PNIM_ITS ---
Progress Note: A&P Assessment and Plan (1) Acute respiratory failure: Code(s): J96.00 - Acute respiratory failure, unspecified whether with hypoxia or hypercapnia Status: Acute Assessment and Plan: * ABG ordered * Tripod position multiple times * Hyperventilating * Probably related to COPD * Does not appear to be fluid overloaded * Supplement oxygen as indicated * Pulm consulted (2) COPD with emphysema: Code(s): J43.9 - Emphysema, unspecified Status: Acute Assessment and Plan: * No acute bronchospasm. * Continue maintenance inhalers. * Nebulizers scheduled * ABD ordered * Chest XR shows severe emphysema * Will give one dose methylprednisone 80mg IV * Eliz Methlypred 40mg IV BID * Supplemental oxygen if indicated * Chest ct shows severe emphysema, and possible pna * Feel that this could be an acute exacerbation, as he has increased sputum, and shortness of breath * Currently on levaquin and flagyl * WBC 8.6 (3) Dehydration: Code(s): E86.0 - Dehydration Status: Acute Assessment and Plan: * Secondary to poor oral intake from ongoing nausea and epigastric pain. * Labs are getting better * Does seem to be hemo concentrated with H/H 16.7/51.2 * IV fluid currently (4) Gastroesophageal reflux disease: Code(s): K21.9 - Gastro-esophageal reflux disease without esophagitis Status: Acute Assessment and Plan: * Plan is as detailed above. 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 * Head ct negative for acute intracranial process (8) Colitis: Code(s): K52.9 - Noninfective gastroenteritis and colitis, unspecified Status: Acute Assessment and Plan: * Patient has a difficult time describing his epigastric pain. * CT shows . Suggestion of possible wall thickening along the distal colon concerning for colitis which could be infectious, inflammatory or ischemic in etiology.? * Continue flagyl and levaquin * Protonix on board increase to BID * Carafate also added due to the history of ulcers * Back off to NPO for now (9) Headache: Code(s): R51.9 - Headache, unspecified Status: Acute Assessment and Plan: * Head ct negative for findings * Give headache cocktail * Dilaudid on board * Seems chronic (10) Dysphasia: Code(s): R47.02 - Dysphasia Status: Acute Assessment and Plan: * ST on board * Modified swallow study ordered * Back him to NPO for now Time Spent With Patient Time with anjelica
--- NOTE | 2022-05-04 08:13 | ECG_ITS ---
Measurements Intervals [place] Rate: 101 P: 73 [place]: 139 QRS: 35 QRSD: 92 T: 57 QT: 379 QTc: 493 Interpretive Statements SINUS TACHYCARDIA ABNORMAL RHYTHM ECG COMPARED TO ECG 05/02/2022 10:42:15 NO SIGNIFICANT CHANGES Electronically Signed On 05-04-2022 11:42:04 CDT by Pal Avalos M.D.
[2022-05-04] MEDS: diazePAM INJ (*CRX) 10 MG/2 ML SYRINGE 5 MG IV PUSH (08:41)
[2022-05-04 08:43] LABS: Troponin I 0.019 ng/mL (0.000-0.034)
[2022-05-04] MEDS: ENOXAPARIN 40 MG/0.4 ML SYRINGE SUB-Q (08:44)
[2022-05-04] MEDS: PANTOPRAZOLE SODIUM IV 40 MG VIAL IV PUSH ×2 (08:46→21:05)
[2022-05-04 08:51] LABS: Base Excess ABG 2.6 mEq/l (+/-2.0); Carboxyhemoglobin 0.4 % THb (0-2.0); Fractional Inspired Oxygen 21 %; HCO3 ABG 20.3 mEq/l (22.0-26.0); Methemoglobin ABG 0.5 %THb (0-1.5); Oxygen Content ABG 22.2 %vol (16.0-22.0); Oxygen Saturation ABG 97.1 % (95.0-100.0); Oxyhemoglobin 94.8 % THb (90.0-100.0); PO2 ABG 71.1 mmHg (80.0-100.0); PO2 FiO2 Ratio Arterial Blood 3.39 %; Reduced Hemoglobin 4.3 %THb (0-5.0); Total Hemoglobin 16.7 g/dL (12.0-18.0)
[2022-05-04] MEDS: methylPREDNISolone SOD SUCC 125 MG VIAL 80 MG IV PUSH (08:52)
[2022-05-04 08:54] LABS: PCO2 ABG 18.9 mmHg (35.0-45.0); Site Drawn LEFT BRACHIAL; pH ABG 7.649 (7.350-7.450)
[2022-05-04] MEDS: IPRATROPIUM BR 0.02% INH SOLN 0.5 MG/2.5 ML VIAL INHALATION ×3 (08:55→20:25)
[2022-05-04] MEDS: ALBUTEROL SULFATE NEB 2.5 MG/3 ML INH 1.25 MG INHALATION (08:55)
[2022-05-04] MEDS: POTASSIUM CHLORIDE INJ 40 MEQ in SODIUM CHLORIDE 0.9% IV 500 ML 130 MEQ IVPB (08:59)
--- NOTE | 2022-05-04 09:03 | PC.NURSE ---
Instrument Person spoke with Anson Bennett and all PO are to be held at this time.
--- NOTE | 2022-05-04 09:06 | PCSTNOTE ---
Modified Barium Swallow is cancelled at this time as Hospitalist would like patient to remain NPO at this time. It may be rescheduled in the future.
--- NOTE | 2022-05-04 11:10 | PM.CNPUL ---
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 Patient has developed right arm weakness and shortness of breath approximately 1 month ago. Recent diagnostic studies have showed a newly elevated right hemidiaphragm and ill-defined soft tissue neck mass involving C2 and C3 vertebrae. on chest CT the patient has advanced centrilobular emphysema and right lower lobe infiltrate. On physical exam in addition to right upper arm weakness the patient has diminished abdominal excursion especially in the right upper abdominal quadrant suggestive of a right hemidiaphragm weakness. Patient complained of some shortness of breath in the supine position also related to right hemidiaphragm weakness. The right diaphragm weakness is most likely related to tumor invasion with phrenic nerve root compression in the neck. there is no evidence of pneumonia or COPD exacerbation. The patient will need further confirmation of diaphragm weakness with sniff test and possibly C-spine MRI. Arterial blood gases have shown acute respiratory alkalosis likely related to anxiety and epigastric pain. He had no evidence of pulmonary embolism on chest CT done 2 days ago. Plan: although the patient has been on DVT prophylaxis, I would get venous Doppler study of lower extremities to exclude DVT. I would repeat arterial blood gases following abdominal pain and anxiety control. Also draw blood cultures to exclude sepsis. I would continue with triple inhaler, nebulized short-acting bronchodilators p.r.n. and Solu-Medrol 40 mg IV daily for just 5 days for COPD. there is no need to treat patient with antibiotics for possible respiratory infection. the case was discussed with the hospitalist. 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 Most information for this report was obtained after reviewing the patient's chart. The patient is a poor historian as he has had severe abdominal pain and also right arm weakness. I the patient was diagnosed with squamous cell carcinoma of the tonsil in 2010 and received chemoradiation. 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 Since then he has had dysphagia. Approximately 2 months ago, he was admitted to [facility] where he was found to have recurrence of sarcoma. The patient refused biopsy. Since then he has had no further treatment for his recurrent sarcoma. Reportedly the patient has had shortness of breath for approximately 1 month. He also has developed right arm weakness related to tumor invasion. He has lost 60 lb over the last 10 months. He has had a dysphagia which probably explains the weight lost and poor calorie intake. patient has been having shortness of breath especially the last month. He has mild cough but no fever chills hemoptysis night sweats. On admission CT of the chest showed no evidence of pulmonary embolism but did show severe emphysema, and mild right lower lobe atelectasis. CT also showed new right diaphragm elevation that was not prese
--- NOTE | 2022-05-04 11:44 | PC.NURSE ---
Patients is bedside and states she would like th patient to be transferred to [place] where he has been seeing an oncologist. Called hospitalist Anson Bennett at [phone] to update him on the 's request. No answer, left voicemail.
[2022-05-04 11:59] LABS: Troponin I 0.025 ng/mL (0.000-0.034)
--- NOTE | 2022-05-04 12:30 | PM.TDS ---
Transfer Discharge Sum: Prov Provider Date of admission: 05/04/22 11:06 Primary care physician: Jose Robert, Admitting clinician: Gaetano Becker MD Consults: 05/04/22 Consult to Physician Routine Comment: Consulting Provider: Cuong Diaz Reason for consultation: acute respiratory failure Has provider been notified: Yes DS: Admitting Diagnosis Discharge Date 05/04/22 Admitting Diagnosis COPD exacerbation/acute exacerbation of sarcoma DS: Discharge Diagnosis Discharge Diagnosis (1) Acute respiratory failure: Code(s): J96.00 - Acute respiratory failure, unspecified whether with hypoxia or hypercapnia Status: Acute Assessment and Plan: ABG ordered Tripod position multiple times Hyperventilating Probably related to COPD Does not appear to be fluid overloaded Supplement oxygen as indicated Pulm consulted (2) COPD with emphysema: Code(s): J43.9 - Emphysema, unspecified Status: Acute Assessment and Plan: No acute bronchospasm. Continue maintenance inhalers. Nebulizers scheduled ABD ordered Chest XR shows severe emphysema Will give one dose methylprednisone 80mg IV Eliz Methlypred 40mg IV BID Supplemental oxygen if indicated Chest ct shows severe emphysema, and possible pna Feel that this could be an acute exacerbation, as he has increased sputum, and shortness of breath Currently on levaquin and flagyl WBC 8.6 (3) Dehydration: Code(s): E86.0 - Dehydration Status: Acute Assessment and Plan: Secondary to poor oral intake from ongoing nausea and epigastric pain. Labs are getting better Does seem to be hemo concentrated with H/H 16.7/51.2 IV fluid currently (4) Gastroesophageal reflux disease: Code(s): K21.9 - Gastro-esophageal reflux disease without esophagitis Status: Acute Assessment and Plan: Plan is as detailed above. 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 Head ct negative for acute intracranial process (8) Colitis: Code(s): K52.9 - Noninfective gastroenteritis and colitis, unspecified Status: Acute Assessment and Plan: Patient has a difficult time describing his epigastric pain. CT shows . Suggestion of possible wall thickening along the distal colon concerning for colitis which could be infectious, inflammatory or ischemic in etiology.? Continue flagyl and levaquin Protonix on board increase to BID Carafate also added due to the history of ulcers Back off to NPO for now (9) Headache: Code(s): R51.9 - Headache, unspecified Status: Acute Assessment and Plan: Head ct negative for findings Give headache cocktail Dilaudid on board Seems chronic (10) Dysphasia: Code(s): R47.02 - Dysphasia Status: Acute Assessment and Plan: ST on board Modified swallow study ordered Back him to NPO for now Transfer Discharge Sum: Med Medications Active and Home Medications: Home Medications amlodipine 5 mg tablet 5 mg PO DAILY 07/12/20 [History Confirmed 05/02/22] levothyroxine 50 mcg table
--- NOTE | 2022-05-04 12:30 | P.TS_ITS ---
Transfer Discharge Sum: Prov Provider Date of admission: 05/04/22 11:06 Primary care physician: Jose Robert, Admitting clinician: Gaetano Becker MD Consults: 05/04/22 Consult to Physician Routine Comment: Consulting Provider: Cuong Diaz Reason for consultation: acute respiratory failure Has provider been notified: Yes DS: Admitting Diagnosis Discharge Date 05/04/22 Admitting Diagnosis COPD exacerbation/acute exacerbation of sarcoma DS: Discharge Diagnosis Discharge Diagnosis (1) Acute respiratory failure: Code(s): J96.00 - Acute respiratory failure, unspecified whether with hypoxia or hypercapnia Status: Acute Assessment and Plan: * ABG ordered * Tripod position multiple times * Hyperventilating * Probably related to COPD * Does not appear to be fluid overloaded * Supplement oxygen as indicated * Pulm consulted (2) COPD with emphysema: Code(s): J43.9 - Emphysema, unspecified Status: Acute Assessment and Plan: * No acute bronchospasm. * Continue maintenance inhalers. * Nebulizers scheduled * ABD ordered * Chest XR shows severe emphysema * Will give one dose methylprednisone 80mg IV * Eliz Methlypred 40mg IV BID * Supplemental oxygen if indicated * Chest ct shows severe emphysema, and possible pna * Feel that this could be an acute exacerbation, as he has increased sputum, and shortness of breath * Currently on levaquin and flagyl * WBC 8.6 (3) Dehydration: Code(s): E86.0 - Dehydration Status: Acute Assessment and Plan: * Secondary to poor oral intake from ongoing nausea and epigastric pain. * Labs are getting better * Does seem to be hemo concentrated with H/H 16.7/51.2 * IV fluid currently (4) Gastroesophageal reflux disease: Code(s): K21.9 - Gastro-esophageal reflux disease without esophagitis Status: Acute Assessment and Plan: * Plan is as detailed above. 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 * Head ct negative for acute intracranial process (8) Colitis: Code(s): K52.9 - Noninfective gastroenteritis and colitis, unspecified Status: Acute Assessment and Plan: * Patient has a difficult time describing his epigastric pain. * CT shows . Suggestion of possible wall thickening along the distal colon concerning for colitis which could be infectious, inflammatory or ischemic in etiology.? * Continue flagyl and levaquin * Protonix on board increase to BID * Caraf
[2022-05-04] MEDS: MAGNESIUM SULF 2 GM/WATER 50ML 2 GM/50 ML BAG IVPB (14:10)
[2022-05-04] MEDS: ALBUTEROL SULFATE NEB 2.5 MG/3 ML INH INHALATION ×2 (16:52→20:24)
--- NOTE | 2022-05-04 18:24 | PC.NURSE ---
Gave report to Katrina at [facility]. RN requested to leave IV access in.
--- NOTE | 2022-05-04 18:46 | PC.NURSE ---
Patient transferring to [facility]. Spoke with Anson Bennett regarding transfer.
== END 2022-05-04 23:30 | disposition short-term general hospital (02) | DRG 190 ==
LOC: ANHED 14:54 → ANH3MED 15:40
PROVIDERS: Physician Assistant; Admitting Provider Internal Medicine; Emergency Provider Emergency Medicine; PCP Internal Medicine; Visit Provider Nurse Practitioner
DX: J43.2 Centrilobular emphysema (principal); J96.00 Acute respiratory failure, unspecified whether with hypoxia or hypercapnia; J18.9 Pneumonia, unspecified organism; E46 Unspecified protein-calorie malnutrition; R64 Cachexia; E87.3 Alkalosis; E86.0 Dehydration; K52.9 Noninfective gastroenteritis and colitis, unspecified; R47.02 Dysphasia; Z20.822 Contact with and (suspected) exposure to COVID-19; K21.9 Gastro-esophageal reflux disease without esophagitis; I10 Essential (primary) hypertension; E03.9 Hypothyroidism, unspecified; C76.0 Malignant neoplasm of head, face and neck; R51.9 Headache, unspecified; E78.5 Hyperlipidemia, unspecified; R13.10 Dysphagia, unspecified; C09.9 Malignant neoplasm of tonsil, unspecified; Z96.612 Presence of left artificial shoulder joint; Z96.611 Presence of right artificial shoulder joint; Z87.11 Personal history of peptic ulcer disease; Z87.891 Personal history of nicotine dependence; Z99.81 Dependence on supplemental oxygen; Z68.24 Body mass index [BMI] 24.0-24.9, adult
CPT/HCPCS: 36415; 36600; 70450; 70490; 71045; 71275; 74177; 80053; 81001; 82375; 82805; 83050; 83605; 83690; 83735; 84484; 85025; 85380; 85610; 85730; 87040; 87070; 87205; 93005; 93970; 94640; 96365; 96366; 96367; 96375; 96376; 99285; A9270; C9113; C9803; G0378; J0131; J1170; J1650; J1956; J2405; J2550; J2920; J2930; J3360; J3475; J3480; J7030; J7040; Q9967; U0003; U0005